=== PATIENT | male | born 1960 ===

== ENCOUNTER 2017-08-27 06:23 | Emergency (ER) | payer SELFPAY ==
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
[2017-08-27 08:07] VITALS: BP 148/88; PULSE 76; RESP 16; TEMP 97.8
[2017-08-27 09:04] VITALS: O2SAT 98
== END 2017-08-27 08:07 | disposition home or self-care (01) ==
LOC: MERGE 06:23 → C.ER 06:23
DX: Z76.0 Encounter for issue of repeat prescription (principal); M79.1 Myalgia

== ENCOUNTER 2017-08-29 04:45 | Emergency (ER) | payer OTHER ==
[2017-08-29 04:54] VITALS: RESP 18; O2SAT 98
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
[2017-08-29 06:13] VITALS: BP 125/88; PULSE 74; TEMP 98.6
== END 2017-08-29 06:04 | disposition home or self-care (01) ==
LOC: C.ER 04:45 → MERGE 04:45 → C.ER 06:04
DX: Z76.0 Encounter for issue of repeat prescription (principal); F41.9 Anxiety disorder, unspecified

== ENCOUNTER 2017-09-05 13:15 | Emergency (ER) | payer SELFPAY ==
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
[2017-09-05 15:23] VITALS: BP 129/78; PULSE 78; RESP 18; TEMP 97.9
[2017-09-05 15:35] VITALS: O2SAT 97
== END 2017-09-05 15:15 | disposition home or self-care (01) ==
LOC: C.ER 13:15
DX: Z76.0 Encounter for issue of repeat prescription (principal); M79.603 Pain in arm, unspecified; I10 Essential (primary) hypertension

== ENCOUNTER 2017-09-15 15:24 | Emergency (ER) | payer OTHER ==
[2017-09-15 16:01] VITALS: TEMP 97.8; O2SAT 98
[2017-09-15] MEDS ORDERED: Lactated Ringer's 1,000 ML IV STA (16:33)
[2017-09-15 16:57] LABS: BASO % 0.7 % (0.0-2.0); EOS # 0.1 K/uL (0.0-0.7); EOS % 1.3 % (0.0-4.0); HEMATOCRIT 38.9 % (35.0-51.0); LYMPH # 1.5 K/uL (1.0-4.3); LYMPH % 23.9 % (20.0-40.0); MEAN CELL VOLUME 90.5 fL (80.0-94.0); MEAN CORPUSCULAR HEMOGLOBIN 31.7 pg (27.0-31.0); MEAN CORPUSCULAR HGB CONC 35.1 g/dL (33.0-37.0); MEAN PLATELET VOLUME 8.9 fL (7.2-11.7); MONO # 0.6 K/uL (0.0-0.8); MONO % 9.6 % (0.0-10.0); WHITE BLOOD COUNT 6.3 K/uL (4.8-10.8)
[2017-09-15 17:07] LABS: ALB/GLOB RATIO 1.3 (1.0-2.1); ALKALINE PHOSPHATASE 59 U/L (38-126); ALT/SGPT 22 U/L (21-72); AST/SGOT 22 U/L (17-59); BILIRUBIN,TOTAL 0.4 mg/dL (0.2-1.3); BLOOD UREA NITROGEN 23 mg/dL (9-20); CALCIUM 8.8 mg/dl (8.6-10.4); CARBON DIOXIDE 31 mmol/L (22-30); CHLORIDE 99 mmol/L (98-107); GFR AFRICAN-AMERICAN > 60; GLUCOSE,RANDOM 78 mg/dL (75-110); SODIUM 136 mmol/L (132-148)
--- NOTE | 2017-09-15 17:09 | CT ---
PROCEDURE: CT HEAD WITHOUT CONTRAST. HISTORY: r/o ICH COMPARISON: None available. TECHNIQUE: Axial computed tomography images were obtained through the head/brain without intravenous contrast. Radiation dose: Total exam DLP = 738 mGy-cm. This CT exam was performed using one or more of the following dose reduction techniques: Automated exposure control, adjustment of the mA and/or kV according to patient size, and/or use of iterative reconstruction technique. FINDINGS: HEMORRHAGE: No intracranial hemorrhage. BRAIN: No mass effect or edema. No atrophy or chronic microvascular ischemic changes. VENTRICLES: Unremarkable. No hydrocephalus. CALVARIUM: Unremarkable. PARANASAL SINUSES: Unremarkable as visualized. No significant inflammatory changes. MASTOID AIR CELLS: Unremarkable as visualized. No inflammatory changes. OTHER FINDINGS: None. IMPRESSION: Normal CT of the Head.
[2017-09-15 18:07] VITALS: BP 132/84; PULSE 81; RESP 16
--- NOTE | 2017-09-15 18:30 | C.PDOC ---
History Of Present Illness 56 year old male presents to the ED c/o left sided headache. Patient is also c/ o minimal epigastric and right fifth toe pain. Patient denies recent trauma, injury, nausea, vomit, fever, chills. Time Seen by Provider: 09/15/17 16:21 Chief Complaint (Nursing): Headache History Per: Patient History/Exam Limitations: no limitations Onset/Duration Of Symptoms: Days Severity: None Quality: "Pain" Preceeding Symptoms: None Recent travel outside of the [place]: No Additional History Per: Patient Past Medical History Reviewed: Historical Data, Nursing Documentation, Vital Signs Vital Signs: Last Vital Signs Temp 97.8 F 09/15/17 16:00 Pulse 81 09/15/17 18:06 Resp 16 09/15/17 18:06 BP 132/84 09/15/17 18:06 Pulse Ox 98 09/15/17 18:34 - Medical History PMH: Anxiety, Depression, HTN Surgical History: No Surg Hx Family History: States: Unknown Family Hx - Social History Hx Alcohol Use: No Hx Substance Use: No - Immunization History Hx Tetanus Toxoid Vaccination: No Hx Influenza Vaccination: No Hx Pneumococcal Vaccination: No Review Of Systems Constitutional: Negative for: Fever, Chills Eyes: Negative for: Vision Change Cardiovascular: Negative for: Chest Pain, Palpitations Gastrointestinal: Positive for: Abdominal Pain. Negative for: Nausea, Vomiting , Diarrhea Musculoskeletal: Positive for: Foot Pain (right fifth toe) Skin: Negative for: Rash Neurological: Positive for: Headache. Negative for: Weakness, Numbness Physical Exam - Physical Exam Appears: Non-toxic, No Acute Distress Skin: Normal Color, Warm, Dry Head: Atraumatic, Normacephalic, Tenderness (mild left maxillary sinus tenderness) Nose: No Discharge, No Deformity Oral Mucosa: Moist Neck: Normal ROM, Supple Chest: Symmetrical Cardiovascular: Rhythm Regular, No Murmur Respiratory: Normal Breath Sounds, No Rales, No Rhonchi, No Wheezing Gastrointestinal/Abdominal: Soft, No Tenderness Extremity: Normal ROM, No Pedal Edema, No Calf Tenderness, No Deformity, No Swelling Neurological/Psych: Oriented x3, Normal Speech, Normal Cognition Gait: Steady ED Course And Treatment - Laboratory Results Result Diagrams: 09/15/17 16:46 09/15/17 16:46 O2 Sat by Pulse Oximetry: 98 (On RA) Pulse Ox Interpretation: Normal - CT Scan/US CT head Other Rad Studies (CT/US): Read By Radiologist, Radiology Report Reviewed CT/US Interpretation: FINDINGS: HEMORRHAGE: No intracranial hemorrhage. BRAIN : No mass effect or edema. No atrophy or chronic microvascular ischemic changes. VENTRICLES: Unremarkable. No hydrocephalus. CALVARIUM: Unremarkable. PARANASAL SINUSES: Unremarkable as visualized. No significant inflammatory changes. MASTOID AIR CELLS: Unremarkable as visualized. No inflammatory changes. OTHER FINDINGS: None. IMPRESSION: Normal CT of the Head. Medical Decision Making Medical Decision Making: Impression : headache, abdominal pain, right fifth toe pain Plan: * CT head * Blood work * IV fluids Patient was requesting prescription fro Ativan upon prescription monitoring it was showed that yael received 45 tablets of Ativan 3 days ago. Disposition - Disposition Referrals: [facility] [Outside] [facility] [Outside] Disposition: HOME/ ROUTINE Disposition Time: 17:40 Condition: GOOD Additional Instructions: Thank you for letting us take care of you today. The emergency medical care you received today was directed at your acute symptoms. If you were prescribed any medication, please fill it and take as directed. It may take several days for your symptoms to resolve. Return to the Emergency Department if your symptoms worsen, do not improve, or if you have any other problems. Please contact your doctor or call one of the physicians/clinics you have been referred to that are listed on the Patient Visit Information form that is included in your discharge packet. Bring any paperwork you were given at discharge with you along with any medications you are taking to your follow up visit. Our treatment cannot replace ongoing medical care by a primary care provider (PCP) outside of the emergency department. Thank you for allowing the [facility] team to be part of your care today. Stay hydrated throughout the day. Follow up with the clinic in 2-3 days for outpatient management and further evaluation. Prescriptions: Amoxicillin/Clavulanate [Augmentin 875 MG-125 MG] 1 tab PO Q12 #14 tab Ibuprofen [Motrin] 600 mg PO Q6 PRN #20 tab PRN Reason: Pain, Moderate (4-7) Instructions: Sinusitis (ED) Forms: [email or web address] (Citizen Of [place]) - Clinical Impression Clinical Impression: Sinusitis - Scribe Statement The provider has reviewed the documentation as recorded by the Scribe Gilles Eckert All medical record entries made by the Scribe were at my direction and personally dictated by me. I have reviewed the chart and agree that the record accurately reflects my personal performance of the history, physical exam, medical decision making, and the department course for this patient. I have also personally directed, reviewed, and agree with the discharge instructions and disposition.
== END 2017-09-15 18:06 | disposition home or self-care (01) ==
LOC: C.ER 15:24
DX: J32.9 Chronic sinusitis, unspecified (principal); I10 Essential (primary) hypertension
CPT/HCPCS: 70450; 80053; 83690; 85025; 99284; J7120

== ENCOUNTER 2017-09-19 06:27 | Emergency (ER) | payer OTHER ==
[2017-09-19 06:50] VITALS: O2SAT 100
--- NOTE | 2017-09-19 06:52 | C.PDOC ---
Chief Complaint (Nursing): Abdominal Pain Past Medical History - Medical History PMH: Anxiety, Depression, HTN Family History: States: Unknown Family Hx - Social History Hx Alcohol Use: No Hx Substance Use: No - Immunization History Hx Tetanus Toxoid Vaccination: No Hx Influenza Vaccination: No Hx Pneumococcal Vaccination: No Disposition - Disposition
[2017-09-19] MEDS ORDERED: Sodium Chloride 0.9% 1,000 ML IV ONE (07:14)
[2017-09-19] MEDS ORDERED: Sodium Chloride 0.9% 1,000 ML ONE (07:54)
[2017-09-19 08:09] LABS: BASO % 0.6 % (0.0-2.0); EOS # 0.1 K/uL (0.0-0.7); EOS % 1.6 % (0.0-4.0); HEMOGLOBIN 14.2 g/dL (12.0-18.0); LYMPH # 1.3 K/uL (1.0-4.3); LYMPH % 31.1 % (20.0-40.0); MEAN CELL VOLUME 90.4 fL (80.0-94.0); MEAN CORPUSCULAR HGB CONC 35.4 g/dL (33.0-37.0); MEAN PLATELET VOLUME 8.9 fL (7.2-11.7); MONO # 0.4 K/uL (0.0-0.8); MONO % 10.1 % (0.0-10.0); NEUT # 2.4 K/uL (1.8-7.0); NEUT % 56.6 % (50.0-75.0); RBC 4.44 Mil/uL (4.40-5.90); RED CELL DISTRIBUTION WIDTH 13.1 % (11.5-14.5); WHITE BLOOD COUNT 4.2 K/uL (4.8-10.8)
[2017-09-19 08:21] LABS: URINE BILIRUBIN NEGATIVE (NEGATIVE); URINE BLOOD NEGATIVE (NEGATIVE); URINE CLARITY Clear (Clear); URINE COLOR Yellow (YELLOW); URINE GLUCOSE (UA) NORMAL (Normal); URINE LEUKOCYTE ESTERASE NEG Leu/uL (Negative); URINE NITRATE NEGATIVE (NEGATIVE); URINE PROTEIN NEGATIVE (NEGATIVE); URINE UROBILINOGEN NORMAL mg/dL (0.2-1.0)
[2017-09-19 08:25] LABS: ALB/GLOB RATIO 1.4 (1.0-2.1); ALBUMIN 3.8 g/dL (3.5-5.0); ALT/SGPT 21 U/L (21-72); AST/SGOT 18 U/L (17-59); BLOOD UREA NITROGEN 18 mg/dL (9-20); CALCIUM 8.5 mg/dl (8.6-10.4); GFR AFRICAN-AMERICAN > 60; GFR NON-AFRICAN AMERICAN > 60; LIPASE 145 U/L (23-300)
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
[2017-09-19 09:28] VITALS: BP 147/84; PULSE 63; RESP 18; TEMP 97.7
== END 2017-09-19 09:30 | disposition home or self-care (01) ==
LOC: C.ER 06:27
DX: R10.13 Epigastric pain (principal); I10 Essential (primary) hypertension; E03.9 Hypothyroidism, unspecified
CPT/HCPCS: 80053; 81001; 83690; 85025; 96361; 96374; 96375; 99285; C9113; J1885; J7040

== ENCOUNTER 2017-09-22 06:57 | Emergency (ER) | payer OTHER, SELFPAY ==
[2017-09-22 07:16] VITALS: RESP 18
[2017-09-22] MEDS ORDERED: Sodium Chloride 0.9% 1,000 ML IV ONE (08:07)
[2017-09-22] MEDS ORDERED: DiphenhydrAMINE 50 mg/ml Inj IVP STA (08:07)
[2017-09-22] MEDS ORDERED: DiphenhydrAMINE 50 mg/ml Inj ONE (08:16)
[2017-09-22] MEDS ORDERED: Sodium Chloride 0.9% 1,000 ML ONE (08:16)
--- NOTE | 2017-09-22 08:30 | C.PDOC ---
History Of Present Illness 56-year-old male, presents to the emergency department with multiple complaints. Patients primary complaint is a generalized headache that has been ongoing for "a long time." Patient notes he was living in [place], where he was prescribed Fioricet Q6hrs, but he ran out when he moved here. Patients secondary complaint is generalized abdominal pain for the past few days, which worsens with eating. Additionally, he states pain to both hands after putting his hands in dryer. Denies vomiting, fevers, chills, shortness of breath, chest pain, visual changes, numbness/weakness, facial droop, speech changes, sensory changes, back pain, symptoms, change in bowel habits, or any other associated symptoms. No other complaints at this time. Time Seen by Provider: 09/22/17 07:33 Chief Complaint (Nursing): Headache History Per: Patient History/Exam Limitations: no limitations Onset/Duration Of Symptoms: Days Current Symptoms Are (Timing): Still Present Past Medical History Reviewed: Historical Data, Nursing Documentation, Vital Signs Vital Signs: Last Vital Signs Temp 98.2 F 09/22/17 09:10 Pulse 78 09/22/17 09:10 Resp 18 09/22/17 09:10 BP 134/76 09/22/17 09:10 Pulse Ox 97 09/22/17 18:12 - Medical History PMH: Anxiety, Depression, HTN, Hypothyroidism Family History: States: No Known Family Hx - Social History Hx Alcohol Use: No Hx Substance Use: No - Immunization History Hx Tetanus Toxoid Vaccination: No Hx Influenza Vaccination: No Hx Pneumococcal Vaccination: No Review Of Systems Except As Marked, All Systems Reviewed And Found Negative. Constitutional: Negative for: Fever, Chills Cardiovascular: Negative for: Chest Pain Respiratory: Negative for: Shortness of Breath Gastrointestinal: Positive for: Nausea, Abdominal Pain. Negative for: Vomiting Musculoskeletal: Negative for: Neck Pain, Back Pain Neurological: Positive for: Headache. Negative for: Weakness, Numbness, Altered Mental Status, Dizziness Physical Exam - Physical Exam Appears: Non-toxic, No Acute Distress Skin: Warm, Dry, No Rash Head: Atraumatic, Normacephalic Eye(s): bilateral: Normal Inspection, PERRL, EOMI Nose: Normal Oral Mucosa: Moist Lips: Normal Appearing Neck: Normal ROM Chest: Symmetrical, No Tenderness Cardiovascular: Rhythm Regular, No Murmur Respiratory: Normal Breath Sounds, No Accessory Muscle Use Gastrointestinal/Abdominal: Soft, No Tenderness, No Guarding, No Rebound Back: Normal Inspection, No CVA Tenderness Extremity: Normal ROM, No Swelling Neurological/Psych: Oriented x3, Normal Speech, Normal Cranial Nerves, Normal Motor, Normal Sensation, Normal Reflexes, Other (No focal deficits) Gait: Steady ED Course And Treatment - Laboratory Results Result Diagrams: 09/22/17 08:39 09/22/17 08:39 O2 Sat by Pulse Oximetry: 97 (on RA) Pulse Ox Interpretation: Normal Medical Decision Making Medical Decision Making: Plan: * CMP, UDS * CBC * Benadryl, Reglan, IVF, Xanax * UA * Reassess and Disposition Prior Visits Notes and records from previous visits were reviewed. Patient had a CT head scan done on 09/15/17 that did not reveal any acute findings. Patient was instructed to apply bacitracin twice a day and wash with soap and water. Ua was found to have (+) UTI. Patient was treated for potential Urethritis. Disposition - Disposition Referrals: [facility] at [facility] [Outside] Disposition: HOME/ ROUTINE Disposition Time: 10:10 Condition: GOOD Additional Instructions: Follow up with the medical doctor within 1-2 days. Return if worsened. Prescriptions: Alprazolam [Xanax] 0.5 mg PO ONCE PRN #5 tab PRN Reason: Anxiety Ciprofloxacin HCl [Cipro] 500 mg PO BID #28 tab Metoclopramide [Reglan] 1 tab PO TID PRN #25 tab PRN Reason: Nausea/Vomiting Naproxen [Naprosyn] 500 mg PO BID #20 tab Instructions: Urinary Tract Infection in Women (ED), Migraine Headache (ED) Forms: [employer] (Gabonese) - Clinical Impression Clinical Impression: Anxiety, Headache, Abdominal pain - Scribe Statement The provider has reviewed the documentation as recorded by the Scribe (Omar Gunderson) All medical record entries made by the Scribe were at my direction and personally dictated by me. I have reviewed the chart and agree that the record accurately reflects my personal performance of the history, physical exam, medical decision making, and the department course for this patient. I have also personally directed, reviewed, and agree with the discharge instructions and disposition.
[2017-09-22 08:42] LABS: BASO # 0.1 K/uL (0.0-0.2); EOS # 0.1 K/uL (0.0-0.7); EOS % 1.2 % (0.0-4.0); HEMOGLOBIN 14.3 g/dL (12.0-18.0); LYMPH # 1.6 K/uL (1.0-4.3); LYMPH % 30.2 % (20.0-40.0); MEAN CELL VOLUME 92.2 fL (80.0-94.0); MEAN CORPUSCULAR HEMOGLOBIN 31.8 pg (27.0-31.0); MEAN CORPUSCULAR HGB CONC 34.5 g/dL (33.0-37.0); MEAN PLATELET VOLUME 9.4 fL (7.2-11.7); MONO # 0.5 K/uL (0.0-0.8); MONO % 9.8 % (0.0-10.0); NEUT % 57.8 % (50.0-75.0); RBC 4.5 Mil/uL (4.40-5.90); RED CELL DISTRIBUTION WIDTH 12.9 % (11.5-14.5); WHITE BLOOD COUNT 5.2 K/uL (4.8-10.8)
[2017-09-22 08:53] LABS: SQUAMOUS EPITHIAL 2 /hpf (0-5); URINE BACTERIA RARE (<OCC); URINE BILIRUBIN NEGATIVE (NEGATIVE); URINE BLOOD 3+ (NEGATIVE); URINE CLARITY Clear (Clear); URINE COLOR Straw (YELLOW); URINE GLUCOSE (UA) NORMAL (Normal); URINE LEUKOCYTE ESTERASE 3+ Leu/uL (Negative); URINE NITRATE NEGATIVE (NEGATIVE); URINE PROTEIN NEGATIVE (NEGATIVE); URINE UROBILINOGEN NORMAL mg/dL (0.2-1.0)
[2017-09-22 08:59] LABS: BENZODIAZEPINES, UR NEGATIVE (NEGATIVE); OPIATES, UR NEGATIVE (NEGATIVE); PHENCYCLIDINE, UR NEGATIVE (NEGATIVE)
[2017-09-22 09:09] LABS: ALB/GLOB RATIO 1.3 (1.0-2.1); ALBUMIN 4.2 g/dL (3.5-5.0); ALT/SGPT 23 U/L (21-72); AST/SGOT 20 U/L (17-59); BLOOD UREA NITROGEN 14 mg/dL (9-20); CALCIUM 8.7 mg/dl (8.6-10.4); GFR AFRICAN-AMERICAN > 60; GFR NON-AFRICAN AMERICAN > 60
[2017-09-22 09:11] VITALS: BP 134/76; PULSE 78; TEMP 98.2
[2017-09-22 09:44] LABS: BARBITURATES, UR POSITIVE (NEGATIVE)
[2017-09-22 10:15] VITALS: O2SAT 97
[2017-09-22] MEDS ORDERED: cefTRIAXone (Rocephin) 250 mg Inj IM STA (10:18)
[2017-09-22] MEDS ORDERED: cefTRIAXone 250 MG, Lidocaine Hydrochloride 1% 1 ML IM ONE (10:33)
== END 2017-09-22 11:06 | disposition home or self-care (01) ==
LOC: C.ER 06:57
DX: F41.9 Anxiety disorder, unspecified (principal); R51 Headache; R10.84 Generalized abdominal pain
CPT/HCPCS: 80053; 80324; 80345; 80346; 80349; 80353; 80358; 80361; 81001; 83992; 85025; 96361; 96372; 96374; 99285; J0696; J2765; J7040

== ENCOUNTER 2017-09-25 07:48 | Emergency (ER) | payer SELFPAY ==
[2017-09-25 08:03] VITALS: BMI 23.0
[2017-09-25 08:08] VITALS: O2SAT 99
[2017-09-25] MEDS ORDERED: Lactated Ringer's 1,000 ML IV ONE (08:41)
[2017-09-25] MEDS ORDERED: Lactated Ringer's 1,000 ML ONE (09:12)
[2017-09-25 09:13] LABS: BASO % 0.9 % (0.0-2.0); EOS # 0.1 K/uL (0.0-0.7); EOS % 2.4 % (0.0-4.0); HEMOGLOBIN 13.6 g/dL (12.0-18.0); LYMPH # 1.5 K/uL (1.0-4.3); LYMPH % 31.1 % (20.0-40.0); MEAN CELL VOLUME 91.1 fL (80.0-94.0); MEAN CORPUSCULAR HEMOGLOBIN 32.1 pg (27.0-31.0); MEAN CORPUSCULAR HGB CONC 35.3 g/dL (33.0-37.0); MONO # 0.5 K/uL (0.0-0.8); MONO % 11.1 % (0.0-10.0); NEUT # 2.6 K/uL (1.8-7.0); NEUT % 54.5 % (50.0-75.0); RBC 4.23 Mil/uL (4.40-5.90); RED CELL DISTRIBUTION WIDTH 13.1 % (11.5-14.5); WHITE BLOOD COUNT 4.7 K/uL (4.8-10.8)
[2017-09-25 09:25] LABS: BLOOD UREA NITROGEN 17 mg/dL (9-20); CALCIUM 8.8 mg/dl (8.6-10.4); GFR AFRICAN-AMERICAN > 60; GFR NON-AFRICAN AMERICAN > 60
[2017-09-25 09:28] LABS: SQUAMOUS EPITHIAL < 1 /hpf (0-5); URINE BILIRUBIN NEGATIVE (NEGATIVE); URINE BLOOD NEGATIVE (NEGATIVE); URINE CLARITY Clear (Clear); URINE COLOR Straw (YELLOW); URINE GLUCOSE (UA) NORMAL (Normal); URINE LEUKOCYTE ESTERASE NEG Leu/uL (Negative); URINE NITRATE NEGATIVE (NEGATIVE); URINE PROTEIN NEGATIVE (NEGATIVE); URINE UROBILINOGEN NORMAL mg/dL (0.2-1.0)
[2017-09-25 10:19] VITALS: BP 147/92; PULSE 69; RESP 18; TEMP 98.1
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
== END 2017-09-25 10:45 | disposition home or self-care (01) ==
LOC: C.ER 07:48
DX: R42 Dizziness and giddiness (principal); F41.9 Anxiety disorder, unspecified; R11.2 Nausea with vomiting, unspecified; R19.7 Diarrhea, unspecified
CPT/HCPCS: 80048; 81001; 85025; 87086; 96361; 96374; 96375; 99285; C9113; J2765; J7120

== ENCOUNTER 2017-10-03 05:51 | Emergency (ER) | payer OTHER, SELFPAY ==
[2017-10-03 05:52] VITALS: BMI 23.3
[2017-10-03 06:03] VITALS: PULSE 80; TEMP 97.9; O2SAT 97
[2017-10-03] MEDS ORDERED: Apap-Butalbital-Caffeine 325-50-40mg Tab PO STA (06:26)
--- NOTE | 2017-10-03 06:28 | C.PDOC ---
History Of Present Illness Patient is a 56 y/o male, with a Hx of chronic migraines, who presents to the ED with a complaint of a frontal WALLIS. Patient notes pain is similar to past migraines. Admits to taking Fioricet for pain, but has run out and requests a refill. Patient denies any other physical complaints at this time. Time Seen by Provider: 10/03/17 06:05 Chief Complaint (Nursing): Headache History Per: Patient History/Exam Limitations: no limitations Current Symptoms Are (Timing): Still Present Recent travel outside of the [place]: No Past Medical History Reviewed: Historical Data, Nursing Documentation, Vital Signs Vital Signs: Last Vital Signs Temp 97.9 F 10/03/17 06:01 Pulse 80 10/03/17 06:01 Resp 20 10/03/17 06:01 BP 156/96 H 10/03/17 06:01 Pulse Ox 97 10/03/17 06:29 - Medical History PMH: Anxiety, Depression, HTN, Hypothyroidism, Migraine, Seizures Surgical History: No Surg Hx Family History: States: Unknown Family Hx - Social History Hx Tobacco Use: No Hx Alcohol Use: No Hx Substance Use: No - Immunization History Hx Tetanus Toxoid Vaccination: No Hx Influenza Vaccination: No Hx Pneumococcal Vaccination: No Review Of Systems Neurological: Positive for: Headache (frontal ) Physical Exam - Physical Exam Appears: Well, Non-toxic, No Acute Distress Eye(s): bilateral: Normal Inspection Ear(s): Bilateral: Normal Nose: Normal Oral Mucosa: Moist Throat: Normal, No Erythema Neck: Supple Chest: Symmetrical Cardiovascular: Rhythm Regular, No Murmur Respiratory: Normal Breath Sounds, No Rales, No Rhonchi, No Wheezing Gastrointestinal/Abdominal: Soft, No Tenderness Neurological/Psych: Oriented x3, Normal Speech, Normal Cognition, Normal Motor, Normal Sensation, Normal Reflexes, Other (no focal deficits) Gait: Steady ED Course And Treatment O2 Sat by Pulse Oximetry: 97 Pulse Ox Interpretation: Normal Progress Note: Motrin and Fioricet administered. On re-eval, patient feels better and is in NAD and stable for discharge. Reevaluation Time: 06:43 Reassessment Condition: Improved Disposition - Disposition Referrals: [facility] at [facility] [Outside] Disposition Time: 06:44 Condition: STABLE Additional Instructions: Take meds as prescribed Follow up in clinic Return to ER if worse Prescriptions: Acetaminophen/Butalbital/Caf [Fioricet] 1 tab PO TID PRN #20 tab PRN Reason: Headache Forms: [employer] (Korean) - Clinical Impression Clinical Impression: Migraine headache - Scribe Statement The provider has reviewed the documentation as recorded by the Scribe Sveta Ojeda All medical record entries made by the Scribe were at my direction and personally dictated by me. I have reviewed the chart and agree that the record accurately reflects my personal performance of the history, physical exam, medical decision making, and the department course for this patient. I have also personally directed, reviewed, and agree with the discharge instructions and disposition.
[2017-10-03] MEDS ORDERED: Apap-Butalbital-Caffeine 325-50-40mg Tab ONE (06:47)
[2017-10-03 06:56] VITALS: BP 138/87; RESP 16
== END 2017-10-03 07:12 | disposition home or self-care (01) ==
LOC: C.ER 05:51
DX: G43.909 Migraine, unspecified, not intractable, without status migrainosus (principal)

== ENCOUNTER 2017-10-24 09:25 | Emergency (ER) | payer SELFPAY ==
[2017-10-24 09:25] VITALS: BMI 23.3
[2017-10-24 09:45] VITALS: BP 137/89; PULSE 77; RESP 18; TEMP 97.9; O2SAT 99
--- NOTE | 2017-10-24 10:17 | C.PDOC ---
History Of Present Illness 56 y/o male presents to ED with complaints of growth to lower lip externally for 2 months. Patient states lesion bleeds whenever he shaves and is interested in removal of lesion. Patient denies any other complaints at this time. Chief Complaint (Nursing): Abnormal Skin Integrity History Per: Patient History/Exam Limitations: no limitations Onset/Duration Of Symptoms: Days Current Symptoms Are (Timing): Still Present Quality Of Symptoms: Painful Past Medical History Reviewed: Historical Data, Nursing Documentation, Vital Signs Vital Signs: Last Vital Signs Temp 97.9 F 10/24/17 09:43 Pulse 77 10/24/17 09:43 Resp 18 10/24/17 09:43 BP 137/89 10/24/17 09:43 Pulse Ox 99 10/24/17 10:16 - Medical History PMH: Anxiety, Depression, HTN, Hypothyroidism, Migraine, Seizures Surgical History: No Surg Hx Family History: States: No Known Family Hx - Social History Hx Tobacco Use: No Hx Alcohol Use: No Hx Substance Use: No - Immunization History Hx Tetanus Toxoid Vaccination: No Hx Influenza Vaccination: No Hx Pneumococcal Vaccination: No Review Of Systems Constitutional: Negative for: Fever, Chills Gastrointestinal: Negative for: Nausea, Vomiting Skin: Positive for: Lesions Neurological: Negative for: Numbness Physical Exam - Physical Exam Appears: Non-toxic, No Acute Distress Skin: Warm, Dry, Other (low lip wart like structure .5cm raised (-)erythema (-) surrounding edema) Head: Atraumatic, Normacephalic Eye(s): bilateral: Normal Inspection Oral Mucosa: Moist Cardiovascular: Rhythm Regular Respiratory: Normal Breath Sounds, No Rales, No Rhonchi, No Wheezing Gastrointestinal/Abdominal: Soft, No Tenderness, No Guarding, No Rebound Neurological/Psych: Oriented x3 ED Course And Treatment O2 Sat by Pulse Oximetry: 99 (RA) Pulse Ox Interpretation: Normal Medical Decision Making Medical Decision Making: Impression: WART Plan: pt referred to general surgery for further evaluation. Disposition - Disposition Referrals: Gino Stiles MD [Staff Provider] - Disposition: HOME/ ROUTINE Disposition Time: 10:15 Condition: GOOD Instructions: Common Wart (ED) Forms: [employer] (Belarusian) - Clinical Impression Clinical Impression: Skin lesion, Wart of face - Scribe Statement The provider has reviewed the documentation as recorded by the Scribe Gerri Hernandez All medical record entries made by the Ismaelibkorey were at my direction and personally dictated by me. I have reviewed the chart and agree that the record accurately reflects my personal performance of the history, physical exam, medical decision making, and the department course for this patient. I have also personally directed, reviewed, and agree with the discharge instructions and disposition.
== END 2017-10-24 10:19 | disposition home or self-care (01) ==
LOC: C.ER 09:25
DX: L98.9 Disorder of the skin and subcutaneous tissue, unspecified (principal); B07.9 Viral wart, unspecified

== ENCOUNTER 2017-10-28 11:04 | Emergency (ER) | payer SELFPAY ==
[2017-10-28 11:04] VITALS: BMI 23.3
[2017-10-28 11:25] VITALS: RESP 16; TEMP 97.7
[2017-10-28 12:19] VITALS: BP 148/86; PULSE 84; O2SAT 97
--- NOTE | 2017-10-28 14:07 | C.PDOC ---
History Of Present Illness 56 yr old male presents to the ER with complaints of body aches, sore throat and fever for 1 day. Patient is also requesting refills for his HTN medicine. Denies chest pain, SOB, cough, nausea, vomiting, abdominal pain or headache. Time Seen by Provider: 10/28/17 12:02 Chief Complaint (Nursing): Flu-like Symptoms History Per: Patient History/Exam Limitations: no limitations Onset/Duration Of Symptoms: Days (1) Current Symptoms Are (Timing): Still Present Past Medical History Reviewed: Historical Data, Nursing Documentation, Vital Signs Vital Signs: Last Vital Signs Temp 97.7 F 10/28/17 11:23 Pulse 84 10/28/17 12:19 Resp 16 10/28/17 12:19 BP 148/86 10/28/17 12:19 Pulse Ox 97 10/28/17 14:08 - Medical History PMH: Anxiety, Depression, HTN, Hypothyroidism, Migraine, Seizures Family History: States: No Known Family Hx - Social History Hx Tobacco Use: No Hx Alcohol Use: No Hx Substance Use: No - Immunization History Hx Tetanus Toxoid Vaccination: No Hx Influenza Vaccination: No Hx Pneumococcal Vaccination: No Review Of Systems Except As Marked, All Systems Reviewed And Found Negative. Constitutional: Positive for: Fever (subjective), Other ((+) body aches) ENT: Positive for: Throat Pain (sore throat) Cardiovascular: Negative for: Chest Pain Respiratory: Negative for: Cough, Shortness of Breath Gastrointestinal: Negative for: Nausea, Vomiting, Abdominal Pain Neurological: Negative for: Headache Physical Exam - Physical Exam Appears: Non-toxic, No Acute Distress Skin: Warm, Dry, No Rash Nose: Normal Oral Mucosa: Moist Throat: Normal, No Erythema, No Exudate, No Drooling Neck: Normal, Normal ROM, Supple Cardiovascular: Rhythm Regular, No Murmur Respiratory: Normal Breath Sounds, No Rales, No Rhonchi, No Stridor, No Wheezing Extremity: Normal ROM, No Swelling Neurological/Psych: Oriented x3, Normal Speech ED Course And Treatment O2 Sat by Pulse Oximetry: 97 (RA) Pulse Ox Interpretation: Normal Disposition - Disposition Referrals: [facility] [Outside] [facility] [Outside] Disposition: HOME/ ROUTINE Disposition Time: 12:15 Condition: GOOD Additional Instructions: Thank you for letting us take care of you today. The emergency medical care you received today was directed at your acute symptoms. If you were prescribed any medication, please fill it and take as directed. It may take several days for your symptoms to resolve. Return to the Emergency Department if your symptoms worsen, do not improve, or if you have any other problems. Please contact your doctor or call one of the physicians/clinics you have been referred to that are listed on the Patient Visit Information form that is included in your discharge packet. Bring any paperwork you were given at discharge with you along with any medications you are taking to your follow up visit. Our treatment cannot replace ongoing medical care by a primary care provider (PCP) outside of the emergency department. Thank you for allowing the [facility] team to be part of your care today. Follow up with the clinic next week as schedlued for re-evaluation and further management. Prescriptions: Ibuprofen [Motrin] 600 mg PO Q6 PRN #20 tab PRN Reason: Pain, Moderate (4-7) Metoprolol Succinate [Toprol Xl] 50 mg PO DAILY #10 tab.er.24h Oseltamivir Phosphate [Tamiflu] 75 mg PO BID #10 capsule Instructions: Viral Syndrome (ED) - Clinical Impression Clinical Impression: Influenza - Scribe Statement The provider has reviewed the documentation as recorded by the Myla Brownlee Provider Attestation: All medical record entries made by the Myla were at my direction and personally dictated by me. I have reviewed the chart and agree that the record accurately reflects my personal performance of the history, physical exam, medical decision making, and the department course for this patient. I have also personally directed, reviewed, and agree with the discharge instructions and disposition.
== END 2017-10-28 12:18 | disposition home or self-care (01) ==
LOC: C.ER 11:04
DX: J11.1 Influenza due to unidentified influenza virus with other respiratory manifestations (principal); I10 Essential (primary) hypertension; E03.9 Hypothyroidism, unspecified

== ENCOUNTER 2017-11-16 04:50 | Emergency (ER) | payer MEDICARE, MEDICAID ==
[2017-11-16 04:51] VITALS: BMI 23.3
[2017-11-16 05:09] VITALS: RESP 20; O2SAT 99
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
[2017-11-16 07:40] VITALS: BP 139/88; PULSE 87; TEMP 98.2
== END 2017-11-16 06:24 | disposition home or self-care (01) ==
LOC: C.ER 04:50
DX: G89.29 Other chronic pain (principal); R10.13 Epigastric pain; I10 Essential (primary) hypertension; E03.9 Hypothyroidism, unspecified

== ENCOUNTER 2017-11-20 07:01 | Emergency (ER) | payer MEDICAID, MEDICARE ==
[2017-11-20 07:01] VITALS: BMI 23.3
[2017-11-20 07:32] VITALS: RESP 18
--- NOTE | 2017-11-20 08:06 | C.PDOC ---
History Of Present Illness 56 yr old male presents to the ER with complaints of left sided headache for 1 day. Patient states the headache feels similar to his regular migraines. Patient was seen in September at [facility] and had a normal CAT scan of the head and was discharged home with Julietaet. Patient states the Fioricet helps but he has ran out and his next clinic appointment is not till December 06. Patient also reports of a small growth just below his lower lip on the chin for the past 2 months. States every time he shaves the area, it bleeds. Patient denies fever, chills, vision changes, chest pain, SOB, mouth swelling, throat swelling, lip swelling, nausea, vomiting, neck pain, weakness or numbness. Time Seen by Provider: 11/20/17 07:33 Chief Complaint (Nursing): Headache History Per: Patient History/Exam Limitations: no limitations Onset/Duration Of Symptoms: Days (1 day for headache, 2 montsh for growth) Current Symptoms Are (Timing): Still Present Past Medical History Reviewed: Historical Data, Nursing Documentation, Vital Signs Vital Signs: Last Vital Signs Temp 98.0 F 11/20/17 08:52 Pulse 70 11/20/17 08:52 Resp 18 11/20/17 08:52 BP 122/70 11/20/17 08:52 Pulse Ox 98 11/20/17 09:43 - Medical History PMH: Anxiety, Back Problems, Depression, HTN, Hypothyroidism, Migraine, Seizures Family History: States: No Known Family Hx - Social History Hx Tobacco Use: No Hx Alcohol Use: No Hx Substance Use: No - Immunization History Hx Tetanus Toxoid Vaccination: No Hx Influenza Vaccination: No Hx Pneumococcal Vaccination: No Review Of Systems Except As Marked, All Systems Reviewed And Found Negative. Constitutional: Negative for: Fever, Chills Eyes: Negative for: Vision Change ENT: Positive for: Other (- lip swelling). Negative for: Mouth Swelling, Throat Swelling Cardiovascular: Negative for: Chest Pain Respiratory: Negative for: Shortness of Breath Gastrointestinal: Negative for: Nausea, Vomiting Musculoskeletal: Negative for: Neck Pain Skin: Positive for: Other (+ growth just below lower lip on the chin) Neurological: Positive for: Headache (left sided). Negative for: Weakness, Numbness Physical Exam - Physical Exam Appears: Non-toxic, No Acute Distress Skin: Warm, Dry, Other (+ 2mm, skin color growth just below lower lip on the chin, no signs of infections, no erythema, no drainage) Head: Atraumatic, Normacephalic, No Abrasion, No Laceration Eye(s): bilateral: Normal Inspection, PERRL, EOMI Oral Mucosa: Moist Lips: Normal Appearing, No Swelling Throat: Normal, No Erythema, No Exudate Cardiovascular: Rhythm Regular, No Murmur Respiratory: Normal Breath Sounds, No Rales, No Rhonchi, No Stridor, No Wheezing Extremity: Normal ROM, No Swelling Neurological/Psych: Oriented x3, Normal Speech ED Course And Treatment O2 Sat by Pulse Oximetry: 98 (RA) Pulse Ox Interpretation: Normal Progress Note: Patient is treated with Fioricet PO. On reevaluation, patient is resting comfortably, is tolerating PO and no longer had a headache, no neurological deficit, photophobia, rash, fever or nuchal rigidity. Patient is instructed to follow up at the clinic for further evaluation. Medical Decision Making Medical Decision Making: PLAN: * Fioricet PO Disposition - Disposition Referrals: [facility] at [facility] [Outside] Disposition: HOME/ ROUTINE Disposition Time: 09:38 Condition: STABLE Additional Instructions: Follow up in Clinic within 1-2 days. Return to ED if feel worse. 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 - Scribe Statement The provider has reviewed the documentation as recorded by the Scribe Tamiko Brownlee All medical record entries made by the Scribe were at my direction and personally dictated by me. I have reviewed the chart and agree that the record accurately reflects my personal performance of the history, physical exam, medical decision making, and the department course for this patient. I have also personally directed, reviewed, and agree with the discharge instructions and disposition.
[2017-11-20] MEDS ORDERED: Apap-Butalbital-Caffeine 325-50-40mg Tab PO STA (08:12)
[2017-11-20] MEDS ORDERED: Apap-Butalbital-Caffeine 325-50-40mg Tab ONE (08:20)
[2017-11-20 08:53] VITALS: BP 122/70; PULSE 70; TEMP 98
[2017-11-20 09:42] VITALS: O2SAT 98
== END 2017-11-20 09:51 | disposition home or self-care (01) ==
LOC: C.ER 07:01
DX: R51 Headache (principal)

== ENCOUNTER 2018-09-21 14:12 | Emergency (ER) | payer MEDICAID, OTHER, SELFPAY ==
[2018-09-21 14:12] VITALS: BMI 23.3
[2018-09-21 14:39] VITALS: PULSE 80; TEMP 98; O2SAT 99
--- NOTE | 2018-09-21 14:55 | C.PDOC ---
History Of Present Illness Patient is a 57 year old male with a PMHx of psychiatric illness presents to the ED for evaluation of 10 episodes of yellow discharge from the rectum. He denies any recent sexual intercourse or anal intercourse in the past 2 years. He has no history of STD's but is concerned about venereal disease Patient denies constipation, diarrhea, dark or bloody stools, recent camping trips, or any new/exotic foods. Patient recently arrived here from [place] yesterday and noted symptoms thereafter. Time Seen by Provider: 09/21/18 14:52 Chief Complaint (Nursing): Abdominal Pain History Per: Patient History/Exam Limitations: no limitations Onset/Duration Of Symptoms: Days (since yesterday ) Current Symptoms Are (Timing): Still Present Context: Travel Location Of Pain/Discomfort: Other (rectum) Associated Symptoms: denies: Diarrhea, Constipation, Other (no dark or blood stools) Recent travel outside of the [place]: Yes ([place]) Additional History Per: Patient Past Medical History Reviewed: Historical Data, Nursing Documentation, Vital Signs Vital Signs: Last Vital Signs Temp 98 F 09/21/18 14:35 Pulse 80 09/21/18 14:35 Resp 20 09/21/18 14:35 BP Pulse Ox 99 09/21/18 14:35 - Medical History PMH: Anxiety, Back Problems, Depression, HTN, Hypothyroidism, Migraine, Seizures Surgical History: No Surg Hx Family History: States: Unknown Family Hx - Social History Hx Tobacco Use: No Hx Alcohol Use: No Hx Substance Use: No - Immunization History Hx Tetanus Toxoid Vaccination: No Hx Influenza Vaccination: No Hx Pneumococcal Vaccination: No Review Of Systems Constitutional: Negative for: Fever, Chills Eyes: Negative for: Pain, Vision Change ENT: Negative for: Ear Pain, Ear Discharge Cardiovascular: Negative for: Chest Pain, Palpitations Respiratory: Negative for: Cough, Shortness of Breath, SOB with Excertion, Pleuritic Pain Gastrointestinal: Negative for: Diarrhea, Constipation, Melena, Hematochezia Physical Exam - Physical Exam Appears: Non-toxic, No Acute Distress Skin: Warm Head: Normacephalic Eye(s): bilateral: Normal Inspection, PERRL, EOMI Nose: Normal Oral Mucosa: Moist Tongue: Normal Appearing Lips: Normal Appearing Teeth: Normal Dentition Gingiva: Normal Appearing Throat: Normal Neck: Trachea Midline, Supple, Other ( No meningeal signs- negative kernig's and brudzinskis) Chest: Symmetrical Cardiovascular: Rhythm Regular, No Friction Rub Respiratory: No Rales, No Rhonchi, No Wheezing Gastrointestinal/Abdominal: Soft, No Tenderness, No Distention Rectal: No Hemorrhoids, No Mass, No Tenderness, No Other (rash, crepitus, fluctuance, hemorrhoids. No enlarged or tender prostate) Extremity: Bilateral: Normal Color And Temperature Pulses: Left Dorsalis Pedis: Normal, Right Dorsalis Pedis: Normal Neurological/Psych: Oriented x3, Normal Speech, Normal Cognition, No Cerebellar Signs, Normal Motor, Normal Sensation Gait: Steady Extremity: Right: No Drift, Left: No Drift ED Course And Treatment O2 Sat by Pulse Oximetry: 99 (on RA) Pulse Ox Interpretation: Normal Medical Decision Making Medical Decision Makin yr old male p/w concern for veneral disease and yellowish discharge from his rectum. He denies any abnormal stool or pain with defecation. abd non-ttp on exam. Overall well appearing in NAD. No fluctuance noted on exam, no erythema or pain noted to perineum. No rashes or lesions noted. Testicular / penile exam unremarkable. Given well appearance in NAD, will rx w/ concern for STD. Plan * Bloodwork * Urinalysis Pt seeking to sign out AMA: I informed pt that he requires additional testing for ?syphillis and he notes that he does not want to stay for any more antibiotics or further evaluation. I informed the risk of or disability. He notes the risks and notes that he still seeks to sign out AMA. Given normal neuro exam, pt Disposition - Disposition Disposition: AGAINST MEDICAL ADVICE Disposition Time: 18:00 Condition: GOOD Forms: [employer] (Central African) - Clinical Impression Clinical Impression: Rectal discharge - PA / HOME CARE PHYSICAL THERAPIST / Resident Statement MD/DO has reviewed & agrees with the documentation as recorded. - Scribe Statement Provider Attestation: Lolly Rodriguez All medical record entries made by the Scribe were at my direction and personally dictated by me. I have reviewed the chart and agree that the record accurately reflects my personal performance of the history, physical exam, medical decision making, and the department course for this patient. I have also personally directed, reviewed, and agree with the discharge instructions and disposition.
[2018-09-21] MEDS ORDERED: cefTRIAXone (Rocephin) 250 mg Inj IM STA (16:03)
[2018-09-21] MEDS ORDERED: cefTRIAXone 250 MG in Water For Injection 0.9 ML IM ONE (16:15)
[2018-09-21 16:48] VITALS: RESP 18
== END 2018-09-21 16:48 | disposition left against medical advice (07) ==
LOC: C.ER 14:12
DX: R19.8 Other specified symptoms and signs involving the digestive system and abdomen (principal); E03.9 Hypothyroidism, unspecified; I10 Essential (primary) hypertension
CPT/HCPCS: 87081; 96372; 99283; G0328; J0696

== ENCOUNTER 2018-09-22 04:36 | Emergency (ER) | payer SELFPAY ==
[2018-09-22 04:37] VITALS: BMI 23.3
[2018-09-22 05:07] VITALS: TEMP 98.2; O2SAT 98
[2018-09-22] MEDS ORDERED: Apap-Butalbital-Caffeine 325-50-40mg Tab PO STA (05:43)
[2018-09-22] MEDS ORDERED: Apap-Butalbital-Caffeine 325-50-40mg Tab ONE (05:53)
--- NOTE | 2018-09-22 05:54 | C.PDOC ---
History Of Present Illness 57 year old male presents to the ED requesting medical refill for medication for his migraine medications. Patient reports he ran out of his Fioricet. Patient also c/o bilateral earache and wants to be checked. Patient was seen in the ED yesterday for his rectal pain, patient states he knows to follow up with clinic. Patient denies fever, chills, nausea, vomit, headache, visual changes, weakness, numbness. Time Seen by Provider: 09/22/18 05:36 Chief Complaint (Nursing): Medical Clearance History Per: Patient History/Exam Limitations: no limitations Onset/Duration Of Symptoms: Days Current Symptoms Are (Timing): Still Present Reports Recently: Seen In ED (09/21/18) Recent travel outside of the [place]: No Additional History Per: Patient Past Medical History Reviewed: Historical Data, Nursing Documentation, Vital Signs Vital Signs: Last Vital Signs Temp 98.2 F 09/22/18 04:50 Pulse 85 09/22/18 04:50 Resp 20 09/22/18 04:50 BP 156/96 H 09/22/18 04:50 Pulse Ox 98 09/22/18 04:50 - Medical History PMH: Anxiety, Back Problems, Depression, HTN, Hypothyroidism, Migraine, Seizures Surgical History: No Surg Hx Family History: States: Unknown Family Hx - Social History Hx Tobacco Use: No Hx Alcohol Use: No Hx Substance Use: No - Immunization History Hx Tetanus Toxoid Vaccination: No Hx Influenza Vaccination: No Hx Pneumococcal Vaccination: No Review Of Systems Constitutional: Negative for: Fever, Chills Eyes: Negative for: Vision Change Cardiovascular: Negative for: Chest Pain, Palpitations Respiratory: Negative for: Shortness of Breath Gastrointestinal: Negative for: Nausea, Vomiting, Abdominal Pain Skin: Negative for: Rash Neurological: Negative for: Weakness, Numbness, Headache Physical Exam - Physical Exam Appears: Non-toxic, No Acute Distress Skin: Normal Color, Warm, Dry Head: Atraumatic, Normacephalic Eye(s): bilateral: Normal Inspection Ear(s): Bilateral: TM Obscured By Wax (cerumen impaction) Oral Mucosa: Moist Neck: Normal ROM, Supple Chest: Symmetrical Cardiovascular: Rhythm Regular Respiratory: Normal Breath Sounds, No Rales, No Rhonchi, No Wheezing Gastrointestinal/Abdominal: Soft, No Tenderness, No Guarding, No Rebound Rectal: Deferred Extremity: Normal ROM, No Tenderness, No Swelling Neurological/Psych: Oriented x3, Normal Speech, Normal Cognition Gait: Steady ED Course And Treatment O2 Sat by Pulse Oximetry: 98 (ON RA) Pulse Ox Interpretation: Normal Progress Note: Plan: - Fioricet 1 tab PO. On reassessment, patient is resting comfortably, and is in no acute distress. Patient was instructed to follow up with physician/clinic in 1-2 days for further evaluation. 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 - Scribe Statement The provider has reviewed the documentation as recorded by the Scribe Gilles Eckert All medical record entries made by the Scribkorey were at my direction and personally dictated by me. I have reviewed the chart and agree that the record accurately reflects my personal performance of the history, physical exam, medical decision making, and the department course for this patient. I have also personally directed, reviewed, and agree with the discharge instructions and disposition.
[2018-09-22 05:58] VITALS: BP 148/85; PULSE 82; RESP 18
== END 2018-09-22 05:58 | disposition home or self-care (01) ==
LOC: C.ER 04:36
DX: G43.909 Migraine, unspecified, not intractable, without status migrainosus (principal); H61.23 Impacted cerumen, bilateral; E03.9 Hypothyroidism, unspecified; I10 Essential (primary) hypertension

== ENCOUNTER 2018-09-26 05:08 | Emergency (ER) | payer SELFPAY ==
[2018-09-26 05:08] VITALS: BMI 23.3
[2018-09-26 05:34] VITALS: BP 136/82; PULSE 80; RESP 20; TEMP 97.8; O2SAT 98
--- NOTE | 2018-09-26 05:52 | C.PDOC ---
History Of Present Illness 57 year old male presents to the ED c/o headache. Patient reports he was not able to fill the Fioricet prescription that was given to him last time. Patient denies visual changes, neck pain, fever, chills, nausea, vomit, diarrhea, dizziness, weakness, numbness, injury, fall, trauma. Time Seen by Provider: 09/26/18 05:39 Chief Complaint (Nursing): Headache History Per: Patient History/Exam Limitations: no limitations Onset/Duration Of Symptoms: Hrs Current Symptoms Are (Timing): Still Present Quality: "Pain" Associated Symptoms: denies: Photophobia, Blurred Vision, Nausea Recent travel outside of the [place]: No Additional History Per: Patient Past Medical History Reviewed: Historical Data, Nursing Documentation, Vital Signs Vital Signs: Last Vital Signs Temp 97.8 F 09/26/18 05:29 Pulse 80 09/26/18 05:29 Resp 20 09/26/18 05:29 BP 136/82 09/26/18 05:29 Pulse Ox 98 09/26/18 05:29 - Medical History PMH: Anxiety, Back Problems, Depression, HTN, Hypothyroidism (thyroid nodule), Migraine, Seizures Surgical History: No Surg Hx Family History: States: Unknown Family Hx - Social History Hx Tobacco Use: No Hx Alcohol Use: No Hx Substance Use: No - Immunization History Hx Tetanus Toxoid Vaccination: No Hx Influenza Vaccination: No Hx Pneumococcal Vaccination: No Review Of Systems Constitutional: Negative for: Fever, Chills Eyes: Negative for: Vision Change Cardiovascular: Negative for: Chest Pain Respiratory: Negative for: Shortness of Breath Gastrointestinal: Negative for: Nausea, Vomiting, Abdominal Pain Musculoskeletal: Negative for: Neck Pain Skin: Negative for: Rash Neurological: Positive for: Headache. Negative for: Weakness, Numbness, Dizziness Physical Exam - Physical Exam Appears: Non-toxic, No Acute Distress Skin: Normal Color, Warm, Dry Head: Atraumatic, Normacephalic Eye(s): bilateral: Normal Inspection, PERRL, EOMI Neck: Normal ROM, No Midline Cervical Tenderness, Supple Chest: Symmetrical Cardiovascular: Rhythm Regular Respiratory: Normal Breath Sounds, No Rales, No Rhonchi, No Wheezing Gastrointestinal/Abdominal: Soft, No Tenderness Extremity: Normal ROM, No Tenderness, No Swelling Neurological/Psych: Oriented x3, Normal Speech, Normal Cognition, Other (no focal deficits) Gait: Steady ED Course And Treatment O2 Sat by Pulse Oximetry: 98 (ON RA) Pulse Ox Interpretation: Normal Progress Note: Plan: - Motrin 600 mg PO. On reassessment, patient is resting comfortably, and is in no acute distress. Patient was instructed to follow up with physician/clinic in 1-2 days for further evaluation. Disposition - Disposition Referrals: 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 - Scribe Statement The provider has reviewed the documentation as recorded by the Scribe Gilles Eckert All medical record entries made by the Scribe were at my direction and personally dictated by me. I have reviewed the chart and agree that the record accurately reflects my personal performance of the history, physical exam, medical decision making, and the department course for this patient. I have also personally directed, reviewed, and agree with the discharge instructions and disposition.
== END 2018-09-26 06:06 | disposition home or self-care (01) ==
LOC: C.ER 05:08
DX: G43.909 Migraine, unspecified, not intractable, without status migrainosus (principal)

== ENCOUNTER 2018-09-29 15:15 | Emergency (ER) | payer OTHER ==
[2018-09-29 15:15] VITALS: BMI 23.3
[2018-09-29 15:39] VITALS: TEMP 97.9
[2018-09-29] MEDS ORDERED: Sodium Chloride 0.9% 1,000 ML IV ONE (16:37)
[2018-09-29 16:56] LABS: BASO # 0.1 K/uL (0.0-0.2); EOS # 0.4 K/uL (0.0-0.7); EOS % 7.6 % (0.0-4.0); HEMOGLOBIN 14.1 g/dL (12.0-18.0); LYMPH # 1.3 K/uL (1.0-4.3); LYMPH % 24.5 % (20.0-40.0); MEAN CELL VOLUME 92.9 fL (80.0-94.0); MEAN CORPUSCULAR HEMOGLOBIN 30.9 pg (27.0-31.0); MEAN CORPUSCULAR HGB CONC 33.2 g/dL (33.0-37.0); MEAN PLATELET VOLUME 9.7 fL (7.2-11.7); MONO # 0.5 K/uL (0.0-0.8); MONO % 9.9 % (0.0-10.0); NEUT # 3.1 K/uL (1.8-7.0); NRBC % 0.1 % (0.0-2.0); RBC 4.56 Mil/uL (4.40-5.90); RED CELL DISTRIBUTION WIDTH 13.6 % (11.5-14.5); WHITE BLOOD COUNT 5.5 K/uL (4.8-10.8)
[2018-09-29 17:27] LABS: BLOOD UREA NITROGEN 15 mg/dL (9-20); CALCIUM 9.4 mg/dl (8.6-10.4); GFR NON-AFRICAN AMERICAN > 60; LIPASE 85 U/L (23-300)
[2018-09-29 17:31] LABS: ALB/GLOB RATIO 1.5 (1.0-2.1); ALBUMIN 4.7 g/dL (3.5-5.0); ALT/SGPT 21 U/L (21-72); AST/SGOT 43 U/L (17-59)
--- NOTE | 2018-09-29 17:42 | C.PDOC ---
History Of Present Illness 57 year old male presents to the emergency department with a one day history of abdominal pain in his lower quadrants. Patient denies vomiting, diarrhea, nausea, urinary symptoms. Patient also reports headache associated with the abd ominal pain but denies fever, chills, and recent travel. Time Seen by Provider: 09/29/18 15:52 Chief Complaint (Nursing): Abdominal Pain History Per: Patient History/Exam Limitations: no limitations Onset/Duration Of Symptoms: Days (1) Current Symptoms Are (Timing): Still Present Location Of Pain/Discomfort: RLQ, LLQ Quality Of Discomfort: "Pain" Associated Symptoms: Other (headache). denies: Fever, Chills, Nausea, Vomiting, Diarrhea Recent travel outside of the [place]: No Past Medical History Reviewed: Historical Data, Nursing Documentation, Vital Signs Vital Signs: Last Vital Signs Temp 97.9 F 09/29/18 15:36 Pulse 77 09/29/18 15:36 Resp 20 09/29/18 15:36 BP 147/89 09/29/18 15:36 Pulse Ox 98 09/29/18 15:36 - Medical History PMH: Anxiety, Back Problems, Depression, HTN, Hypothyroidism (thyroid nodule), Migraine, Seizures Surgical History: No Surg Hx Family History: States: No Known Family Hx - Social History Hx Tobacco Use: No Hx Alcohol Use: No Hx Substance Use: No - Immunization History Hx Tetanus Toxoid Vaccination: No Hx Influenza Vaccination: No Hx Pneumococcal Vaccination: No Review Of Systems Except As Marked, All Systems Reviewed And Found Negative. Gastrointestinal: Positive for: Abdominal Pain Physical Exam - Physical Exam Appears: Non-toxic, No Acute Distress Skin: Normal Color, Warm, Dry Head: Atraumatic, Normacephalic Eye(s): bilateral: Normal Inspection, PERRL, EOMI Nose: Normal Oral Mucosa: Moist Neck: Normal, Supple Chest: Symmetrical, No Tenderness Cardiovascular: Rhythm Regular, No Murmur Respiratory: Normal Breath Sounds, No Rales, No Rhonchi, No Wheezing Gastrointestinal/Abdominal: Soft, Tenderness (lower quadrant abdominal pain), No Guarding, No Rebound Extremity: Normal ROM Neurological/Psych: Oriented x3, Normal Speech, Normal Cognition ED Course And Treatment - Laboratory Results Result Diagrams: 09/29/18 16:48 09/29/18 16:48 Lab Results: Total Bilirubin 0.9 mg/dL (0.2-1.3) 09/29/18 16:48 AST 43 U/L (17-59) 09/29/18 16:48 ALT 21 U/L (21-72) 09/29/18 16:48 Alkaline Phosphatase 58 U/L (38-126) 09/29/18 16:48 Total Protein 7.9 g/dL (6.3-8.3) 09/29/18 16:48 Albumin 4.7 g/dL (3.5-5.0) 09/29/18 16:48 Globulin 3.2 gm/dL (2.2-3.9) 09/29/18 16:48 Albumin/Globulin Ratio 1.5 (1.0-2.1) 09/29/18 16:48 Lipase 85 U/L (23-300) 09/29/18 16:48 O2 Sat by Pulse Oximetry: 98 (RA) Pulse Ox Interpretation: Normal - CT Scan/US CT Abdomen and Pelvis Other Rad Studies (CT/US): Read By Radiologist, Radiology Report Reviewed CT/US Interpretation: IMPRESSION: Findings consistent with constipation. The appendix exhibits localized dilatation measuring up to 7.65 mm in greatest dimension as above. No obvious inflammatory changes are identified within the adjacent peripancreatic mesentery. Findings are equivocal for acute appendicitis. Clinical correlation with history physical exam and laboratory values to exclude the possibility of a very early acute appendicitis however the findings likely represent a anatomic variation in this particular patient.. Two or 3 coarse calcifications right lobe liver nonspecific. The gallbladder incompletely distended which presumably in part accounts for thick-walled appearance. No pericholecystic fluid collections. Small fat containing umbilical hernia. Medical Decision Making Medical Decision Making: Plan: CT Abdomen and Pelvis Chemistry CBC Pepcid 20mg IVP NaCl IV Fluids Toradol 30mg IVP Urinalysis Currently, patient's abdominal pain is mainly in LLQ. NO RLQ tenderness at this time. Appendicitis highly doubtful. CT Scan discussed with surgeon crisis intervention counselor Dr. Renato Staley, who suggests laxative for constipation as well as antibiotic for equivocal reading. Patient instructed to return to the ED immediately if pain becomes worse or localized to RLQ. Patient understands and states that that is doable. Patient given the number of a GI, as he has never had a colonoscopy before. Disposition Discussed With DrDeanna: Aisha Staley Counseled Patient/Family Regarding: Studies Performed, Diagnosis, Need For Followup, Rx Given - Disposition Referrals: Ramos Hollingsworth MD [Staff Provider] - Disposition: HOME/ ROUTINE Disposition Time: 18:50 Condition: STABLE Additional Instructions: follow up with gi doctor within 2 days take medications as prescribed return to hospital at any time as mentioned your ct scan shows constipation and equivocal reading of inflammed appendix. Given you have no pain now to your right lower abdomen, no fever, no vomiting. We will start you on antibiotics and ask you to return to ER immediately if pain was to reoccur especially in the right lower abdomen. You state understanding and agree to plan. Prescriptions: Ciprofloxacin HCl [Cipro] 500 mg PO BID #20 tab Metronidazole [Flagyl] 500 mg PO BID #20 tablet Naproxen [Naprosyn] 500 mg PO BID PRN #16 tab PRN Reason: Pain, Moderate (4-7) Polyethylene Glycol 3350 [Miralax] 17 g PO DAILY PRN #12 packet PRN Reason: Constipation Instructions: Constipation in Adults, Acute Abdomen (Belly Pain), Adult (DC) Forms: [facility] (Welsh), General Discharge Instructions - Clinical Impression Clinical Impression: Constipation, Abdominal pain - Scribe Statement The provider has reviewed the documentation as recorded by the Scribe (Jacob Rivera) Provider Attestation: All medical record entries made by the Scribe were at my direction and personally dictated by me. I have reviewed the chart and agree that the record accurately reflects my personal performance of the history, physical exam, medical decision making, and the department course for this patient. I have also personally directed, reviewed, and agree with the discharge instructions and disposition.
--- NOTE | 2018-09-29 18:08 | CT ---
Date of service: 09/29/2018 PROCEDURE: CT Abdomen and Pelvis . HISTORY: ABD PAIN COMPARISON: No prior study available for comparison. TECHNIQUE: Contiguous axial images of the abdomen and pelvis performed without oral or intravenous contrast material. Additional 2D sagittal and coronal reformats generated. Radiation dose: Total exam DLP = 482.39 mGy-cm. This CT exam was performed using one or more of the following dose reduction techniques: Automated exposure control, adjustment of the mA and/or kV according to patient size, and/or use of iterative reconstruction technique. FINDINGS: LOWER THORAX: Heart is within range of normal. No significant pericardial effusion. There is a small hiatal hernia. Areas of atelectasis/scarring seen in both lung bases including the lingular and middle lobe regions. No infiltrate effusion or basilar pneumothorax.. LIVER: Liver exhibits normal size.. There are 2 or 3 coarse calcifications seen in the superior aspect right lobe liver the dome of the diaphragm nonspecific. GALLBLADDER AND BILE DUCTS: Gallbladder is incompletely distended which presumably in part accounts for slight thick-walled appearance. No evidence of intraluminal gallbladder calculi or pericholecystic fluid collections.. PANCREAS: Pancreas appears unremarkable without masses collections or calcifications.. SPLEEN: Spleen exhibits normal size and attenuation pattern without masses collections or calcifications. There also appears to be a small splenule adjacent to the anterior superior margin of the mid body of the spleen with a 2nd suspected small splenule along the posterior inferior main body of the spleen also adjacent to the upper pole of the left kidney.. ADRENALS: Slightly nodular appearing adrenal glands.... KIDNEYS AND URETERS: The kidneys demonstrate relatively symmetric size. No evidence of nephrolithiasis or hydronephrosis. BLADDER: Grossly unremarkable urinary bladder is moderately distended. No evidence of intraluminal urinary bladder calculi. REPRODUCTIVE: Prostate gland measures approximately 4 cm in transverse dimension.. Few prostatic calcifications are present. APPENDIX: U slight dilatation of a short segment of the mid to distal appendix which measures up to approximately 7.5 mm however no obvious infiltration/on inflammatory changes in the adjacent mesentery. Findings are equivocal for acute appendicitis and therefore clinical correlation with history physical exam and laboratory values. BOWEL: Evaluation of the bowel is somewhat limited due to the lack of oral contrast material. Stomach is partially distended with food debris liquid and air. Visualized loops of small bowel exhibit normal contour and caliber. No evidence of acute mechanical small bowel obstruction. There is a large amount of stool seen throughout most of the colon consistent with fecal retention/constipation... PERITONEUM: Unremarkable. No fluid collection. No free air. Small fat containing umbilical hernia. LYMPH NODES: Unremarkable. No enlarged lymph nodes. VASCULATURE: Unremarkable. No aortic aneurysm. No aortic atherosclerotic calcification or mural plaque present. BONES: Mild multilevel degenerative spondylosis of the lower thoracic and lumbar spine. OTHER FINDINGS: None. IMPRESSION: Findings consistent with constipation. The appendix exhibits localized dilatation measuring up to 7.65 mm in greatest dimension as above. No obvious inflammatory changes are identified within the adjacent peripancreatic mesentery. Findings are equivocal for acute appendicitis. Clinical correlation with history physical exam and laboratory values to exclude the possibility of a very early acute appendicitis however the findings likely represent a anatomic variation in this particular patient.. Two or 3 coarse calcifications right lobe liver nonspecific. The gallbladder incompletely distended which presumably in part accounts for thick-walled appearance. No pericholecystic fluid collections. Small fat containing umbilical hernia.
[2018-09-29 18:15] LABS: URINE AMORPHOUS SEDIMENT MODERATE /ul (<OCC); URINE BACTERIA RARE (<OCC); URINE BILIRUBIN NEGATIVE (NEGATIVE); URINE BLOOD NEGATIVE (NEGATIVE); URINE CLARITY Hazy (Clear); URINE COLOR Red (YELLOW); URINE GLUCOSE (UA) NORMAL (Normal); URINE LEUKOCYTE ESTERASE NEG Leu/uL (Negative); URINE PROTEIN NEGATIVE (NEGATIVE); URINE UROBILINOGEN NORMAL mg/dL (0.2-1.0)
[2018-09-29 19:21] VITALS: BP 161/98; PULSE 69; RESP 14
[2018-10-01 17:03] VITALS: O2SAT 98
== END 2018-09-29 19:05 | disposition home or self-care (01) ==
LOC: C.ER 15:15
DX: K59.00 Constipation, unspecified (principal); R10.9 Unspecified abdominal pain; I10 Essential (primary) hypertension; E03.9 Hypothyroidism, unspecified; F41.9 Anxiety disorder, unspecified; Z87.891 Personal history of nicotine dependence
CPT/HCPCS: 74176; 80053; 81001; 83690; 85025; 96374; 96375; 99285; J1885; J7030

== ENCOUNTER 2018-10-02 10:32 | Emergency (ER) | payer OTHER ==
[2018-10-02 10:47] VITALS: BMI 22.4
[2018-10-02 10:49] VITALS: O2SAT 98
[2018-10-02] MEDS ORDERED: Sodium Chloride 0.9% 1,000 ML IV ONE (11:19)
[2018-10-02] MEDS ORDERED: Sodium Chloride 0.9% 1,000 ML ONE (11:45)
[2018-10-02 12:02] LABS: BASO # 0.1 K/uL (0.0-0.2); BASO % 1.4 % (0.0-2.0); EOS # 0.3 K/uL (0.0-0.7); EOS % 5.7 % (0.0-4.0); HEMOGLOBIN 13.1 g/dL (12.0-18.0); LYMPH # 1.6 K/uL (1.0-4.3); LYMPH % 31.3 % (20.0-40.0); MEAN CELL VOLUME 92.3 fL (80.0-94.0); MEAN CORPUSCULAR HEMOGLOBIN 31.5 pg (27.0-31.0); MEAN CORPUSCULAR HGB CONC 34.2 g/dL (33.0-37.0); MEAN PLATELET VOLUME 9.1 fL (7.2-11.7); MONO # 0.5 K/uL (0.0-0.8); MONO % 9.3 % (0.0-10.0); NEUT # 2.7 K/uL (1.8-7.0); NEUT % 52.3 % (50.0-75.0); NRBC % 0.1 % (0.0-2.0); RBC 4.14 Mil/uL (4.40-5.90); WHITE BLOOD COUNT 5.1 K/uL (4.8-10.8)
[2018-10-02 12:18] LABS: URINE BILIRUBIN NEGATIVE (NEGATIVE); URINE BLOOD NEGATIVE (NEGATIVE); URINE CLARITY Clear (Clear); URINE COLOR Yellow (YELLOW); URINE GLUCOSE (UA) NORMAL (Normal); URINE LEUKOCYTE ESTERASE NEG Leu/uL (Negative); URINE PROTEIN NEGATIVE (NEGATIVE); URINE UROBILINOGEN NORMAL mg/dL (0.2-1.0)
[2018-10-02 12:21] LABS: ALB/GLOB RATIO 1.5 (1.0-2.1); ALBUMIN 4.1 g/dL (3.5-5.0); ALT/SGPT 32 U/L (21-72); AST/SGOT 25 U/L (17-59); BLOOD UREA NITROGEN 17 mg/dL (9-20); CALCIUM 9.1 mg/dl (8.6-10.4); GFR NON-AFRICAN AMERICAN > 60
--- NOTE | 2018-10-02 13:07 | C.PDOC ---
History Of Present Illness Patient is a 57 year old male, with a PMHx of migraines, who presents to the ED complaining of a frontal headache with associated nausea and photophobia that has been present for one day. Patient states that his symptoms feel similar to his previous migraines. He typically takes Fioricet, but does not have any more medication. Patient additionally c/o bilateral ankle pain and swelling for the past 2 days. He denies any falls, injuries, sensory changes, fever, or chills. Time Seen by Provider: 10/02/18 10:52 Chief Complaint (Nursing): Headache History Per: Patient History/Exam Limitations: no limitations Onset/Duration Of Symptoms: Days (1) Current Symptoms Are (Timing): Still Present Quality: "Pain" Preceeding Symptoms: Known Migraine Symptoms Associated Symptoms: Photophobia, Nausea Recent travel outside of the [place]: No Additional History Per: Patient Past Medical History Reviewed: Historical Data, Nursing Documentation, Vital Signs Vital Signs: Last Vital Signs Temp 98.0 F 10/02/18 10:47 Pulse 85 10/02/18 10:47 Resp 20 10/02/18 10:47 BP 152/89 H 10/02/18 10:47 Pulse Ox 98 10/02/18 10:47 - Medical History PMH: Anxiety, Back Problems, Depression, HTN, Hypothyroidism (thyroid nodule), Migraine, Seizures Surgical History: No Surg Hx Family History: States: Unknown Family Hx - Social History Hx Tobacco Use: No Hx Alcohol Use: No Hx Substance Use: No - Immunization History Hx Tetanus Toxoid Vaccination: No Hx Influenza Vaccination: No Hx Pneumococcal Vaccination: No Review Of Systems Constitutional: Negative for: Fever, Chills Gastrointestinal: Positive for: Nausea Musculoskeletal: Positive for: Foot Pain (ankle pain and swelling ) Neurological: Positive for: Headache (frontal ), Other (photophobia. denies sensory changes. ) Physical Exam - Physical Exam Appears: Non-toxic, Other (mild discomfort ) Skin: Normal Color, Warm, Dry Head: Atraumatic, Normacephalic Eye(s): bilateral: Normal Inspection, PERRL, EOMI Oral Mucosa: Moist Neck: Normal ROM, Supple Chest: Symmetrical, No Deformity Cardiovascular: Rhythm Regular, No Murmur Respiratory: Normal Breath Sounds, No Rales, No Rhonchi, No Wheezing Gastrointestinal/Abdominal: Soft, No Tenderness, No Guarding, No Rebound Extremity: No Calf Tenderness, No Deformity (bilateral ankles ), Other (mild bilateral ankle swelling ) Pulses: Left Dorsalis Pedis: Normal, Right Dorsalis Pedis: Normal Neurological/Psych: Oriented x3, Normal Speech, Normal Cognition ED Course And Treatment - Laboratory Results Result Diagrams: 10/02/18 11:54 10/02/18 11:54 Lab Results: Total Bilirubin 0.3 mg/dL (0.2-1.3) 10/02/18 11:54 AST 25 U/L (17-59) 10/02/18 11:54 ALT 32 U/L (21-72) 10/02/18 11:54 Alkaline Phosphatase 71 U/L (38-126) 10/02/18 11:54 Total Protein 6.7 g/dL (6.3-8.3) 10/02/18 11:54 Albumin 4.1 g/dL (3.5-5.0) 10/02/18 11:54 Globulin 2.6 gm/dL (2.2-3.9) 10/02/18 11:54 Albumin/Globulin Ratio 1.5 (1.0-2.1) 10/02/18 11:54 Urine Color Yellow (YELLOW) 10/02/18 12:10 Urine Clarity Clear (Clear) 10/02/18 12:10 Urine pH 6.0 (5.0-8.0) 10/02/18 12:10 Ur Specific [place] 1.016 (1.003-1.030) 10/02/18 12:10 Urine Protein Negative mg/dL (NEGATIVE) 10/02/18 12:10 Urine Glucose (UA) Normal mg/dL (Normal) 10/02/18 12:10 Urine Ketones Negative mg/dL (NEGATIVE) 10/02/18 12:10 Urine Blood Negative (NEGATIVE) 10/02/18 12:10 Urine Nitrate Negative (NEGATIVE) 10/02/18 12:10 Urine Bilirubin Negative (NEGATIVE) 10/02/18 12:10 Urine Urobilinogen Normal mg/dL (0.2-1.0) 10/02/18 12:10 Ur Leukocyte Esterase Neg Meir/uL (Negative) 10/02/18 12:10 Urine WBC (Auto) < 1 /hpf (0-5) 10/02/18 12:10 Urine RBC (Auto) < 1 /hpf (0-3) 10/02/18 12:10 O2 Sat by Pulse Oximetry: 98 (on RA) Pulse Ox Interpretation: Normal Progress Note: Bloodwork, Serology, Urinalysis were ordered. Toradol 30mg IVP, Reglan 10mg IV, IV Fluids administered. Disposition Counseled Patient/Family Regarding: Studies Performed, Diagnosis, Need For Followup, Rx Given - Disposition Referrals: [facility] [Outside] Disposition: HOME/ ROUTINE Disposition Time: 13:20 Condition: STABLE Additional Instructions: FOLLOW UP WITH THE MEDICAL CLINIC IN 1-2 DAYS USE MEDICATIONS NEEDED RETURN TO ER IF YOUR SYMPTOMS WORSEN Prescriptions: Acetaminophen/Butalbital/Caf [Fioricet] 1 tab PO TID PRN #20 tab PRN Reason: Headache Naproxen 375 mg PO BID PRN #20 tablet PRN Reason: pain Instructions: Migraine Headache (DC) Forms: [employer] (Croatian) Print Language: [place] - Clinical Impression Clinical Impression: Migraine, Arthralgia of ankle - Scribe Statement The provider has reviewed the documentation as recorded by the Myla Rodriguez All medical record entries made by the Myla were at my direction and personally dictated by me. I have reviewed the chart and agree that the record accurately reflects my personal performance of the history, physical exam, medical decision making, and the department course for this patient. I have also personally directed, reviewed, and agree with the discharge instructions and disposition.
--- NOTE | 2018-10-02 13:09 | C.PDOC ---
Time Seen by Provider: 10/02/18 10:52 Chief Complaint (Nursing): Headache Past Medical History Vital Signs: Last Vital Signs Temp 98.0 F 10/02/18 10:47 Pulse 85 10/02/18 10:47 Resp 20 10/02/18 10:47 BP 152/89 H 10/02/18 10:47 Pulse Ox 98 10/02/18 10:47 - Medical History PMH: Anxiety, Back Problems, Depression, HTN, Hypothyroidism (thyroid nodule), Migraine, Seizures Family History: States: Unknown Family Hx - Social History Hx Tobacco Use: No Hx Alcohol Use: No Hx Substance Use: No - Immunization History Hx Tetanus Toxoid Vaccination: No Hx Influenza Vaccination: No Hx Pneumococcal Vaccination: No ED Course And Treatment - Laboratory Results Result Diagrams: 10/02/18 11:54 10/02/18 11:54 Lab Results: Total Bilirubin 0.3 mg/dL (0.2-1.3) 10/02/18 11:54 AST 25 U/L (17-59) 10/02/18 11:54 ALT 32 U/L (21-72) 10/02/18 11:54 Alkaline Phosphatase 71 U/L (38-126) 10/02/18 11:54 Total Protein 6.7 g/dL (6.3-8.3) 10/02/18 11:54 Albumin 4.1 g/dL (3.5-5.0) 10/02/18 11:54 Globulin 2.6 gm/dL (2.2-3.9) 10/02/18 11:54 Albumin/Globulin Ratio 1.5 (1.0-2.1) 10/02/18 11:54 Urine Color Yellow (YELLOW) 10/02/18 12:10 Urine Clarity Clear (Clear) 10/02/18 12:10 Urine pH 6.0 (5.0-8.0) 10/02/18 12:10 Ur Specific [place] 1.016 (1.003-1.030) 10/02/18 12:10 Urine Protein Negative mg/dL (NEGATIVE) 10/02/18 12:10 Urine Glucose (UA) Normal mg/dL (Normal) 10/02/18 12:10 Urine Ketones Negative mg/dL (NEGATIVE) 10/02/18 12:10 Urine Blood Negative (NEGATIVE) 10/02/18 12:10 Urine Nitrate Negative (NEGATIVE) 10/02/18 12:10 Urine Bilirubin Negative (NEGATIVE) 10/02/18 12:10 Urine Urobilinogen Normal mg/dL (0.2-1.0) 10/02/18 12:10 Ur Leukocyte Esterase Neg Meir/uL (Negative) 10/02/18 12:10 Urine WBC (Auto) < 1 /hpf (0-5) 10/02/18 12:10 Urine RBC (Auto) < 1 /hpf (0-3) 10/02/18 12:10 O2 Sat by Pulse Oximetry: 98 Disposition - Disposition
[2018-10-02 13:24] VITALS: BP 151/97; PULSE 73; RESP 18; TEMP 98.1
[2018-10-04 20:48] LABS: LYME IGM NEGATIVE (NEGATIVE)
[2018-10-04 21:06] LABS: LYME IGG NEGATIVE (NEGATIVE)
== END 2018-10-02 13:35 | disposition home or self-care (01) ==
LOC: C.ER 10:32
DX: G43.909 Migraine, unspecified, not intractable, without status migrainosus (principal); M25.572 Pain in left ankle and joints of left foot; M25.571 Pain in right ankle and joints of right foot
CPT/HCPCS: 80053; 81001; 85025; 86618; 87804; 96365; 96375; 99284; J1885; J2765; J7030

== ENCOUNTER 2018-10-11 09:05 | Emergency (ER) | payer OTHER ==
[2018-10-11 09:06] VITALS: BMI 22.4
[2018-10-11 09:14] VITALS: RESP 16; TEMP 97.8
--- NOTE | 2018-10-11 09:16 | C.PDOC ---
Chief Complaint (Nursing): Headache Past Medical History - Medical History PMH: Anxiety, Back Problems, Depression, HTN, Hypothyroidism (thyroid nodule), Migraine, Seizures Family History: States: Unknown Family Hx - Social History Hx Tobacco Use: No Hx Alcohol Use: No Hx Substance Use: No - Immunization History Hx Tetanus Toxoid Vaccination: No Hx Influenza Vaccination: No Hx Pneumococcal Vaccination: No Disposition - Disposition
[2018-10-11] MEDS ORDERED: Sodium Chloride 0.9% 1,000 ML IV SCH (09:45)
[2018-10-11] MEDS ORDERED: Sodium Chloride 0.9% 1,000 ML ONE (09:49)
[2018-10-11 09:50] LABS: BASO % 0.8 % (0.0-2.0); EOS # 0.2 K/uL (0.0-0.7); EOS % 2.9 % (0.0-4.0); LYMPH # 1.6 K/uL (1.0-4.3); LYMPH % 28.7 % (20.0-40.0); MEAN CELL VOLUME 92.5 fL (80.0-94.0); MEAN CORPUSCULAR HEMOGLOBIN 31.4 pg (27.0-31.0); MEAN CORPUSCULAR HGB CONC 33.9 g/dL (33.0-37.0); MEAN PLATELET VOLUME 8.7 fL (7.2-11.7); MONO # 0.4 K/uL (0.0-0.8); MONO % 7.9 % (0.0-10.0); NEUT # 3.3 K/uL (1.8-7.0); NEUT % 59.7 % (50.0-75.0); RBC 4.46 Mil/uL (4.40-5.90); RED CELL DISTRIBUTION WIDTH 13.5 % (11.5-14.5); WHITE BLOOD COUNT 5.5 K/uL (4.8-10.8)
--- NOTE | 2018-10-11 09:53 | C.PDOC ---
History Of Present Illness 57 yr old male w/ hx of migraine WALLIS p/w headache. Pt notes headache started at 10pm last night, not sudden onset, not worst of life, without radiation, first time occurence. He notes WALLIS is L sided, throbbing, without radiation, without FND. He notes that his headache feels similiar to previous migraine headaches. He notes trying naproxyn without much relief last night. No neck pain or trauma. No fever. He otherwise denies any abdominal pain, GI or complaints, rash or any other issues. No other complaints. Chief Complaint (Nursing): Headache Past Medical History Vital Signs: Last Vital Signs Temp 97.8 F 10/11/18 09:12 Pulse 74 10/11/18 09:12 Resp 16 10/11/18 09:12 BP 142/92 H 10/11/18 09:12 Pulse Ox 100 10/11/18 09:12 - Medical History PMH: Anxiety, Back Problems, Depression, HTN, Hypothyroidism (thyroid nodule), Migraine, Seizures Family History: States: Unknown Family Hx - Social History Hx Tobacco Use: No Hx Alcohol Use: No Hx Substance Use: No - Immunization History Hx Tetanus Toxoid Vaccination: No Hx Influenza Vaccination: No Hx Pneumococcal Vaccination: No Review Of Systems Constitutional: Negative for: Fever, Chills, Weakness, Malaise Eyes: Negative for: Pain, Vision Change ENT: Negative for: Ear Pain, Ear Discharge, Nose Pain, Nose Congestion, Mouth Pain Cardiovascular: Negative for: Chest Pain, Palpitations, Orthopnea, Edema, Light Headedness Respiratory: Negative for: Cough, Shortness of Breath, SOB with Excertion, Pleuritic Pain Gastrointestinal: Negative for: Nausea, Vomiting, Abdominal Pain, Constipation, Melena, Hematochezia Genitourinary: Negative for: Dysuria, Frequency, Hematuria Musculoskeletal: Negative for: Neck Pain, Shoulder Pain, Back Pain Skin: Negative for: Rash Neurological: Positive for: Headache. Negative for: Weakness, Numbness, Incoordination, Confusion, Seizures, Altered Mental Status Psych: Negative for: Anxiety Physical Exam - Physical Exam Appears: Well, Non-toxic Skin: Normal Color Head: Atraumatic, Normacephalic Eye(s): bilateral: Normal Inspection, PERRL, EOMI Ear(s): Bilateral: Normal Nose: Normal Oral Mucosa: Moist Tongue: Normal Appearing Lips: Normal Appearing Teeth: Normal Dentition Gingiva: Normal Appearing Throat: Normal, No Erythema, No Exudate Neck: Normal, Normal ROM, Supple, Other (no meningeal signs) Chest: Symmetrical Cardiovascular: Rhythm Regular Respiratory: Normal Breath Sounds Gastrointestinal/Abdominal: Normal Exam Back: Normal Inspection, No CVA Tenderness, No Vertebral Tenderness Extremity: Normal ROM Extremity: Bilateral: Atraumatic Neurological/Psych: Oriented x3, Normal Speech, Normal Cognition, Normal Cranial Nerves, No Cerebellar Signs, Normal Motor, Normal Sensation, No Dysarthria Gait: Steady Other Neurological Findings: No Facial Palsy Extremity: Right: No Drift, Left: No Drift, Upper: No Drift, Lower: No Drift ED Course And Treatment - Laboratory Results Result Diagrams: 10/11/18 09:45 10/11/18 09:45 O2 Sat by Pulse Oximetry: 100 Medical Decision Making Medical Decision Making: Well appearing 57 yr old male w/ hx of migraine wallis p/w WALLIS since 10 pm last night. No indication of SAH, given not worst WALLIS of life and not sudden in onset, however given was recently here over past month with WALLIS, will seek CT to rule out mass. Pt in NAD w. normal neuro exam on eval. Will monitor and seek pain control and imaging Pending imaging, labs and pain control. 1036 pain fully resolved per pt. labs unremarkable CT negative, repeat neuro exam unremarkable; neuro exam remains unremarkable Clear for d/c home w/ return indications and followup, pt is agreeable to plan Disposition - Disposition Referrals: Dc Sharpe MD [Staff Provider] - Disposition: HOME/ ROUTINE Disposition Time: 10:38 Condition: GOOD Additional Instructions: Follow up with neurology mary lou, if any new issues or WALLIS returns and is worse, r eturn to ED CHRISTY WINSTON, thank you for letting us take care of you today. Your provider was Bill Amor and you were treated for HEADACHE. The emergency medical care you received today was directed at your acute symptoms. If you were prescribed any medication, please fill it and take as directed. It may take several days for your symptoms to resolve. Return to the Emergency Department if your symptoms worsen, do not improve, or if you have any other problems. Please contact your doctor or call one of the physicians/clinics you have been referred to that are listed on the Patient Visit Information form that is included in your discharge packet. Bring any paperwork you were given at discharge with you along with any medications you are taking to your follow up visit. Our treatment cannot replace ongoing medical care by a primary care provider outside of the emergency department. Thank you for allowing the [facility] team to be part of your care today. If you had an X-Ray or CT scan: A Radiologist will review the ED reading if any change in treatment is needed we will contact you. If you had a blood, urine, or wound culture: It will take several days for the results, if any change in treatment is needed we will contact you. If you had an STI test: It will take 48 hours for the results. Please call after 1 week if you have not heard back. Forms: [employer] (Uzbek) - Clinical Impression Clinical Impression: Migraine headache
[2018-10-11 10:03] LABS: ALB/GLOB RATIO 1.6 (1.0-2.1); ALBUMIN 4.5 g/dL (3.5-5.0); ALT/SGPT 31 U/L (21-72); AST/SGOT 29 U/L (17-59); BLOOD UREA NITROGEN 16 mg/dL (9-20); CALCIUM 9.3 mg/dl (8.6-10.4); GFR NON-AFRICAN AMERICAN > 60
--- NOTE | 2018-10-11 10:25 | CT ---
Date of service: 10/11/2018 PROCEDURE: CT HEAD WITHOUT CONTRAST. HISTORY: WALLIS COMPARISON: Unenhanced head CT 09/15/2017. TECHNIQUE: Axial computed tomography images were obtained through the head/brain without intravenous contrast. Radiation dose: Total exam DLP = 1006.59 mGy-cm. This CT exam was performed using one or more of the following dose reduction techniques: Automated exposure control, adjustment of the mA and/or kV according to patient size, and/or use of iterative reconstruction technique. FINDINGS: HEMORRHAGE: No intracranial hemorrhage. BRAIN: Trace subcortical white matter changes are infrequently scattered at the bilateral frontal lobes, likely a function of limited chronic microangiopathy. Good corticomedullary differentiation is appreciated throughout the brain. Remaining white matter is unremarkable otherwise. There is no mass effect or suspicious extra-axial fluid collection identified. Midline brain anatomy appears unremarkable including the brainstem. VENTRICLES: Unremarkable. No hydrocephalus. CALVARIUM: Unremarkable. PARANASAL SINUSES: Unremarkable as visualized. No significant inflammatory changes. MASTOID AIR CELLS: Unremarkable as visualized. No inflammatory changes. OTHER FINDINGS: None. IMPRESSION: Limited age-appropriate age related neuro degenerative changes are identified with CT examination otherwise unremarkable as discussed above. No mass effect or intracranial hemorrhage appreciable. No cortical edema to suggest acute brain infarction. Follow-up MRI or CT available if clinically warranted.
[2018-10-11 10:49] VITALS: BP 140/95; PULSE 84; O2SAT 97
== END 2018-10-11 10:50 | disposition home or self-care (01) ==
LOC: C.ER 09:05
DX: G43.909 Migraine, unspecified, not intractable, without status migrainosus (principal)
CPT/HCPCS: 70450; 80053; 85025; 96361; 96374; 99284; J2765; J7030

== ENCOUNTER 2018-10-12 05:09 | Emergency (ER) | payer SELFPAY ==
[2018-10-12 05:09] VITALS: BMI 22.4
[2018-10-12 05:31] VITALS: RESP 16
--- NOTE | 2018-10-12 06:11 | C.PDOC ---
History Of Present Illness The patient presents to the ED for evaluation of worsening bilateral hand pain. Patient has a history of pinched nerves and is requesting pain medicaiton because he ran out. Patient denies recent trauma/injury to the site. Time Seen by Provider: 10/12/18 06:11 Chief Complaint (Nursing): Upper Extremity Problem/Injury History Per: Patient History/Exam Limitations: no limitations Onset/Duration Of Symptoms: Days Current Symptoms Are (Timing): Worse Quality: "Pain" Severity: Mild Pain Scale Rating Of: 3 Exacerbating Factor(s): Nothing Recent travel outside of the [place]: No Additional History Per: Patient Past Medical History Reviewed: Historical Data, Nursing Documentation, Vital Signs Vital Signs: Last Vital Signs Temp 98.9 F 10/12/18 05:19 Pulse 81 10/12/18 05:19 Resp 16 10/12/18 05:19 BP 141/78 10/12/18 05:19 Pulse Ox 97 10/12/18 05:19 - Medical History PMH: Anxiety, Back Problems, Depression, HTN, Hypothyroidism (thyroid nodule), Migraine, Seizures Surgical History: No Surg Hx Family History: States: No Known Family Hx - Social History Hx Tobacco Use: No Hx Alcohol Use: No Hx Substance Use: No - Immunization History Hx Tetanus Toxoid Vaccination: No Hx Influenza Vaccination: Yes Hx Pneumococcal Vaccination: No Review Of Systems Constitutional: Negative for: Fever, Chills Cardiovascular: Negative for: Chest Pain, Palpitations Respiratory: Negative for: Cough, Shortness of Breath Gastrointestinal: Negative for: Nausea, Vomiting, Abdominal Pain, Diarrhea Musculoskeletal: Positive for: Hand Pain (bilateral ) Skin: Negative for: Rash, Lesions, Jaundice, Bruising Neurological: Negative for: Weakness, Numbness Psych: Negative for: Anxiety Physical Exam - Physical Exam Appears: Non-toxic, No Acute Distress Skin: Warm, Dry Head: Normacephalic Eye(s): bilateral: Normal Inspection Oral Mucosa: Moist Neck: Supple Chest: Symmetrical, No Deformity Cardiovascular: Rhythm Regular, No Murmur Respiratory: No Rales, No Rhonchi, No Wheezing Extremity: Normal ROM, No Tenderness, Capillary Refill (less than 2 seconds ), No Swelling Pulses: Left Radial: Normal, Right Radial: Normal Neurological/Psych: Oriented x3, Other (good strength and sensation bilaterally ) Gait: Steady ED Course And Treatment O2 Sat by Pulse Oximetry: 97 (on RA ) Pulse Ox Interpretation: Normal Disposition Counseled Patient/Family Regarding: Studies Performed, Diagnosis, Need For Followup - Disposition Referrals: [facility] [Outside] Disposition: HOME/ ROUTINE Disposition Time: 06:11 Condition: FAIR Prescriptions: RX: traMADol [Ultram] 50 mg PO TID PRN #15 tab PRN Reason: Pain, Severe (8-10) Instructions: Chronic Pain Forms: [employer] (Polish) - Clinical Impression Clinical Impression: Arm pain - Scribe Statement The provider has reviewed the documentation as recorded by the Scribe (Salome Staley) Provider Attestation: All medical record entries made by the Scribe were at my direction and personally dictated by me. I have reviewed the chart and agree that the record accurately reflects my personal performance of the history, physical exam, medical decision making, and the department course for this patient. I have also personally directed, reviewed, and agree with the discharge instructions and disposition.
[2018-10-12 06:28] VITALS: BP 128/78; PULSE 80; TEMP 98.4
[2018-10-12 06:31] VITALS: O2SAT 97
== END 2018-10-12 06:28 | disposition home or self-care (01) ==
LOC: C.ER 05:09
DX: M79.642 Pain in left hand (principal); M79.641 Pain in right hand

== ENCOUNTER 2018-10-17 05:10 | Emergency (ER) | payer OTHER ==
[2018-10-17 05:10] VITALS: BMI 22.4
[2018-10-17 05:17] VITALS: BP 139/87; PULSE 74; RESP 20; TEMP 97.8; O2SAT 97
--- NOTE | 2018-10-17 05:36 | C.PDOC ---
Time Seen by Provider: 10/17/18 05:36 Chief Complaint (Nursing): Abdominal Pain Past Medical History Vital Signs: Last Vital Signs Temp 97.8 F 10/17/18 05:13 Pulse 74 10/17/18 05:13 Resp 20 10/17/18 05:13 BP 139/87 10/17/18 05:13 Pulse Ox 97 10/17/18 05:13 - Medical History PMH: Anxiety, Back Problems, Depression, HTN, Hypothyroidism (thyroid nodule), Migraine, Seizures Family History: States: Unknown Family Hx - Social History Hx Tobacco Use: No Hx Alcohol Use: No Hx Substance Use: No - Immunization History Hx Tetanus Toxoid Vaccination: No Hx Influenza Vaccination: No Hx Pneumococcal Vaccination: No ED Course And Treatment O2 Sat by Pulse Oximetry: 97 Disposition Counseled Patient/Family Regarding: Studies Performed, Diagnosis - Disposition Disposition Time: 05:36
== END 2018-10-17 06:00 | disposition left against medical advice (07) ==
LOC: C.ER 05:10
DX: Z02.89 Encounter for other administrative examinations (principal); R10.9 Unspecified abdominal pain

== ENCOUNTER 2018-10-22 13:02 | Emergency (ER) | payer OTHER ==
[2018-10-22 13:07] VITALS: BMI 23.3
[2018-10-22 13:10] VITALS: RESP 18; O2SAT 98
--- NOTE | 2018-10-22 13:44 | C.PDOC ---
History Of Present Illness 57 y/o male, with history of anxiety and bipolar disorder, comes in complaining of pain and a mass in his left breast for 3 months that is now tender, with a few days worth of tenderness to newly found right breast mass. States that his father has history of breast cancer. Patient currently goes to [facility] and has been taking his medications. He denies any current auditory hallucinations, homicidal or suicidal ideation. no nipple discharge. Time Seen by Provider: 10/22/18 13:14 Chief Complaint (Nursing): Abnormal Skin Integrity History Per: Patient History/Exam Limitations: no limitations Onset/Duration Of Symptoms: Days Current Symptoms Are (Timing): Still Present Past Medical History Reviewed: Historical Data, Nursing Documentation, Vital Signs Vital Signs: Last Vital Signs Temp 98.5 F 10/22/18 13:07 Pulse 85 10/22/18 13:07 Resp 18 10/22/18 13:07 BP 122/75 10/22/18 13:07 Pulse Ox 98 10/22/18 13:07 - Medical History PMH: Anxiety, Back Problems, Depression, HTN, Hypothyroidism (thyroid nodule), Migraine, Seizures Family History: States: No Known Family Hx - Social History Hx Tobacco Use: No Hx Alcohol Use: No Hx Substance Use: No - Immunization History Hx Tetanus Toxoid Vaccination: No Hx Influenza Vaccination: No Hx Pneumococcal Vaccination: No Review Of Systems Constitutional: Negative for: Fever, Chills Cardiovascular: Negative for: Chest Pain Respiratory: Negative for: Cough, Shortness of Breath Gastrointestinal: Negative for: Nausea, Vomiting Genitourinary: Negative for: Dysuria Musculoskeletal: Positive for: Other (bilateral breast pain and mass) Skin: Negative for: Rash Psych: Negative for: Suicidal ideation (or homicidal ideation), Other (auditory hallucination) Physical Exam - Physical Exam Appears: Non-toxic, No Acute Distress Skin: Warm, Dry Head: Atraumatic, Normacephalic Eye(s): bilateral: Normal Inspection Oral Mucosa: Moist Neck: Supple Lymphatic: Other (No axillary adenopathy) Chest: Tenderness (0.5 cm mass palpated at 7 o clock position of left breast), Other (has 1cm mobile tender mass at 8-9 o clock position on right breast) Cardiovascular: Rhythm Regular, No Murmur Respiratory: Normal Breath Sounds, No Rales, No Rhonchi, No Wheezing Gastrointestinal/Abdominal: Soft, No Tenderness Extremity: Bilateral: Normal Color And Temperature, Normal ROM Neurological/Psych: Oriented x3, Normal Speech ED Course And Treatment O2 Sat by Pulse Oximetry: 98 (RA) Pulse Ox Interpretation: Normal Medical Decision Making Medical Decision Making: Plan: --Ibuprofen PO Had long discussion with patient about beed for outpatient testing for mbreast masses' Patient has an appointment on 09/26/18 at medical clinic and was advised to discuss case with the medical provider and get rx for mammo and/or breast us. pt understands. . Disposition Counseled Patient/Family Regarding: Diagnosis, Need For Followup - Disposition Referrals: [facility] [Outside] [facility] [Outside] Disposition: HOME/ ROUTINE Disposition Time: 13:41 Condition: GOOD Additional Instructions: Go to your already scheduled medical appointment on 10/27; make sure to tell your medical provider that you have breast pain and lumps, and is recommended that you have further outpatient studies such as mammogram and/or breast ultrasound. Take Tylenol or Motrin for pain. Follow up with Manan Verduzco. Continue going to [facility] for outpatient treatment. YOU ARE RECEIVING INFORMATION ABOUT MALE BREAST CANCER, HOWEVER.,THIS DOES NOT MEAN YOU HAVE BREAST CANCER, BUT YOU NEED TO HAVE BREAST LUMPS FURTHER CHECKED OUT. Instructions: Male Breast Cancer Forms: [facility] (Syrian), General Discharge Instructions - Clinical Impression Clinical Impression: Masses of both breasts - PA / CATHOLIC PRIEST / Resident Statement MD/DO has reviewed & agrees with the documentation as recorded. - Scribe Statement The provider has reviewed the documentation as recorded by the Scribe Nury Otero All medical record entries made by the Ismaelibkorey were at my direction and personally dictated by me. I have reviewed the chart and agree that the record accurately reflects my personal performance of the history, physical exam, medical decision making, and the department course for this patient. I have also personally directed, reviewed, and agree with the discharge instructions and disposition.
[2018-10-22 13:57] VITALS: BP 124/77; PULSE 80; TEMP 98
== END 2018-10-22 14:07 | disposition home or self-care (01) ==
LOC: C.ER 13:02
DX: N63.0 Unspecified lump in unspecified breast (principal)

== ENCOUNTER 2018-10-24 06:41 | Emergency (ER) | payer OTHER ==
[2018-10-24 06:41] VITALS: BMI 23.3
[2018-10-24 06:51] VITALS: PULSE 69; RESP 20; O2SAT 98
--- NOTE | 2018-10-24 07:32 | C.PDOC ---
History Of Present Illness 57 y/o male pt with FMHx of breast cancer presents to the ER c/o pain on b/l nipples. Associated sx includes nodes on b/l nipples and fatigue. Pt was seen here x2 days ago for similar sx and was given motrin which pt reports does not provide pain relief. Pt request breast US, but was informed that he would need a breast specialist to preform the US. Pt does not have any other complaints at this time. Time Seen by Provider: 10/24/18 07:12 Chief Complaint (Nursing): Medical Clearance History Per: Patient History/Exam Limitations: no limitations Onset/Duration Of Symptoms: Days Current Symptoms Are (Timing): Still Present Past Medical History Reviewed: Historical Data, Nursing Documentation, Vital Signs Vital Signs: Last Vital Signs Temp 98.3 F 10/24/18 06:48 Pulse 69 10/24/18 06:48 Resp 20 10/24/18 06:48 BP 133/81 10/24/18 06:48 Pulse Ox 98 10/24/18 06:48 - Medical History PMH: Anxiety, Back Problems, Depression, HTN, Hypothyroidism (thyroid nodule), Migraine, Seizures Family History: States: Unknown Family Hx - Social History Hx Tobacco Use: No Hx Alcohol Use: No Hx Substance Use: No - Immunization History Hx Tetanus Toxoid Vaccination: No Hx Influenza Vaccination: No Hx Pneumococcal Vaccination: No Review Of Systems Except As Marked, All Systems Reviewed And Found Negative. Constitutional: Positive for: Other (fatigue ). Negative for: Fever, Chills Musculoskeletal: Positive for: Other (pain b/l nipples ) Skin: Positive for: Other (lymph nodes on b/l nipples) Physical Exam - Physical Exam Appears: Non-toxic, No Acute Distress Skin: Warm, Dry Head: Normacephalic Eye(s): bilateral: Normal Inspection Throat: Normal Neck: Normal ROM, Supple Lymphatic: Other (Small movable 1 cm mass at 6 o'clock position on left breast and 8 o'clock position on right breast ) Chest: Symmetrical, No Deformity, Tenderness (b/l breast ), No Ecchymosis Cardiovascular: Rhythm Regular Respiratory: Normal Breath Sounds Extremity: Normal ROM (x4) Neurological/Psych: Oriented x3, Normal Speech, Normal Sensation ED Course And Treatment - Laboratory Results Result Diagrams: 10/24/18 07:50 10/24/18 07:50 O2 Sat by Pulse Oximetry: 98 (RA) Pulse Ox Interpretation: Normal - Other Rad chest X-Ray: Read By Radiologist Interpretation: Accession No. : [id number]. Patient Name / ID : GLADIS CHAVEZ / [id number]. Exam Date : 10/24/2018 08:01:08 ( Approved ). Study Comment : Sex / Age : M / 57Y. Creator : vikki booth. Dictator : Lesly Rodríguez MD. Lineworker : Mud Cleaner Operator : Lesly Rodríguez MD. Approver2 : Report Date : 10/24/2018 08:08:07. My Comment : . HISTORY: painful b/l breast masses. COMPARISON: None available. TECHNIQUE: Chest PA and lateral. FINDINGS: LUNGS: Chronic appearing interstitial prominence. Biapical pleural thickening. No focal consolidation. Please note that chest x-ray has limited sensitivity for the detection of pulmonary masses. PLEURA: No significant pleural effusion identified. No definite pneumothorax . CARDIOVASCULAR: Heart size appears within normal limits. Ectatic aorta. Atherosclerotic calcifications of the aortic knob. OSSEOUS STRUCTURES: Mild degenerative changes. Osseous demineralization. VISUALIZED UPPER ABDOMEN: Unremarkable. OTHER FINDINGS: Left breast shadow consistent with gynecomastia. IMPRESSION: Chronic appearing interstitial prominence. Biapical pleural thickening. Left breast shadow consistent with gynecomastia. Progress Note: Plans: -- Chem labs. -- blood work. -- CXR. Pt complains that Motrin was not strong enough to provide pain relief. On re-evaluation patient feels better, labs and CXR were reviwed and without significant abnormalities. Patient will f/u in Clinic ob 10/27/18 as previously scheduled. Patient agrred with this plan. Toradol will be given to pt. Disposition - Disposition Disposition: HOME/ ROUTINE Disposition Time: 09:26 Condition: STABLE Additional Instructions: Follow up in Clinic om 10/27/18 as previously scheduled. Return to ED if feel worse. Prescriptions: traMADol [Ultram] 50 mg PO Q6 #20 tab Instructions: Mastalgia (DC) Forms: [facility] (Citizen [place]) - Clinical Impression Clinical Impression: Breast pain in male - PA / MAJOR GIFTS MANAGER / Resident Statement MD/DO has reviewed & agrees with the documentation as recorded. - Scribe Statement The provider has reviewed the documentation as recorded by the Scribe Jeannie Watson All medical record entries made by the Scribe were at my direction and personally dictated by me. I have reviewed the chart and agree that the record accurately reflects my personal performance of the history, physical exam, medical decision making, and the department course for this patient. I have also personally directed, reviewed, and agree with the discharge instructions and disposition.
[2018-10-24 08:00] LABS: EOS # 0.1 K/uL (0.0-0.7); HEMOGLOBIN 13.2 g/dL (12.0-18.0); LYMPH # 1.2 K/uL (1.0-4.3); LYMPH % 30.6 % (20.0-40.0); MEAN CELL VOLUME 93.3 fL (80.0-94.0); MEAN CORPUSCULAR HEMOGLOBIN 31.8 pg (27.0-31.0); MEAN CORPUSCULAR HGB CONC 34.1 g/dL (33.0-37.0); MEAN PLATELET VOLUME 8.8 fL (7.2-11.7); MONO # 0.4 K/uL (0.0-0.8); MONO % 10.2 % (0.0-10.0); NEUT # 2.1 K/uL (1.8-7.0); NEUT % 55.2 % (50.0-75.0); NRBC % 0.1 % (0.0-2.0); RBC 4.16 Mil/uL (4.40-5.90); RED CELL DISTRIBUTION WIDTH 13.6 % (11.5-14.5); WHITE BLOOD COUNT 3.9 K/uL (4.8-10.8)
[2018-10-24 08:13] LABS: URINE BILIRUBIN NEGATIVE (NEGATIVE); URINE BLOOD NEGATIVE (NEGATIVE); URINE CLARITY Clear (Clear); URINE COLOR Yellow (YELLOW); URINE GLUCOSE (UA) NORMAL (Normal); URINE LEUKOCYTE ESTERASE NEG Leu/uL (Negative); URINE PROTEIN NEGATIVE (NEGATIVE); URINE UROBILINOGEN NORMAL mg/dL (0.2-1.0)
[2018-10-24 08:33] LABS: ALB/GLOB RATIO 1.7 (1.0-2.1); ALBUMIN 4.1 g/dL (3.5-5.0); ALT/SGPT 21 U/L (21-72); AST/SGOT 24 U/L (17-59); BLOOD UREA NITROGEN 16 mg/dL (9-20); CALCIUM 8.8 mg/dl (8.6-10.4); GFR NON-AFRICAN AMERICAN > 60
[2018-10-24 09:42] VITALS: BP 145/84; TEMP 97.6
--- NOTE | 2018-10-24 10:50 | RAD ---
HISTORY: painful b/l breast masses COMPARISON: None available TECHNIQUE: Chest PA and lateral FINDINGS: LUNGS: Chronic appearing interstitial prominence. Biapical pleural thickening. No focal consolidation. Please note that chest x-ray has limited sensitivity for the detection of pulmonary masses. PLEURA: No significant pleural effusion identified. No definite pneumothorax . CARDIOVASCULAR: Heart size appears within normal limits. Ectatic aorta. Atherosclerotic calcifications of the aortic knob. OSSEOUS STRUCTURES: Mild degenerative changes. Osseous demineralization. VISUALIZED UPPER ABDOMEN: Unremarkable. OTHER FINDINGS: Left breast shadow consistent with gynecomastia. IMPRESSION: Chronic appearing interstitial prominence. Biapical pleural thickening. Left breast shadow consistent with gynecomastia.
== END 2018-10-24 09:41 | disposition home or self-care (01) ==
LOC: C.ER 06:41
DX: N64.4 Mastodynia (principal); I10 Essential (primary) hypertension; E03.9 Hypothyroidism, unspecified
CPT/HCPCS: 71046; 80053; 81001; 85025; 96374; 99284; J1885

== ENCOUNTER 2018-12-20 05:21 | Emergency (ER) | payer OTHER ==
[2018-12-20 05:22] VITALS: BMI 23.3
[2018-12-20 05:31] VITALS: O2SAT 98
--- NOTE | 2018-12-20 05:59 | C.PDOC ---
History Of Present Illness 58 year old male with PMHx of chronic migraines presents to the ED requesting refill for his medications. Patient has multiple prior visits to the ED for same presentation. Patient reports he is unable to get an appointment with the clinic, also requesting refill for his other medications including psych. Patient currently c/o mild headache. Contrary to triage patient denies dizziness and nausea. Patient denies fever, chills, vomit, diarrhea, rash, CP, SOB, SI/HI, hallucinations. Time Seen by Provider: 12/20/18 05:41 Chief Complaint (Nursing): Med Refill History Per: Patient History/Exam Limitations: no limitations Onset/Duration Of Symptoms: Hrs Recent travel outside of the [place]: No Additional History Per: Patient Past Medical History Reviewed: Historical Data, Nursing Documentation, Vital Signs Vital Signs: Last Vital Signs Temp 978 F H 12/20/18 05:29 Pulse 68 12/20/18 05:29 Resp 22 12/20/18 05:29 BP 156/95 H 12/20/18 05:29 Pulse Ox 98 12/20/18 05:29 - Medical History PMH: Anxiety, Back Problems, Depression, HTN, Hypothyroidism (thyroid nodule), Migraine, Seizures Surgical History: No Surg Hx Family History: States: Unknown Family Hx - Social History Hx Tobacco Use: No Hx Alcohol Use: No Hx Substance Use: No - Immunization History Hx Tetanus Toxoid Vaccination: No Hx Influenza Vaccination: No Hx Pneumococcal Vaccination: No Review Of Systems Constitutional: Negative for: Fever, Chills Eyes: Negative for: Vision Change Cardiovascular: Negative for: Chest Pain Respiratory: Negative for: Shortness of Breath Gastrointestinal: Negative for: Nausea, Vomiting, Abdominal Pain Skin: Negative for: Rash Neurological: Positive for: Headache. Negative for: Weakness, Numbness, Dizziness Physical Exam - Physical Exam Appears: Non-toxic, No Acute Distress Skin: Normal Color, Warm, Dry Head: Atraumatic, Normacephalic Eye(s): bilateral: Normal Inspection, PERRL, EOMI Oral Mucosa: Moist Neck: Normal ROM, Supple Chest: Symmetrical Cardiovascular: Rhythm Regular Respiratory: Normal Breath Sounds, No Rales, No Rhonchi, No Wheezing Gastrointestinal/Abdominal: Soft, No Tenderness Extremity: Normal ROM, No Tenderness, No Swelling Neurological/Psych: Oriented x3, Normal Speech, Normal Cognition, Other (non focal) Gait: Steady ED Course And Treatment O2 Sat by Pulse Oximetry: 98 (ON RA) Pulse Ox Interpretation: Normal Progress Note: Patient given prescription for Fioricet to fill, advised to follow up with clinic to get refill for his other medications. Disposition Counseled Patient/Family Regarding: Diagnosis, Need For Followup - Disposition Referrals: [facility] [Outside] Disposition: HOME/ ROUTINE Disposition Time: 05:56 Condition: STABLE Additional Instructions: Please follow up in clinic KEEP ALL APPOINTMENTS IN FUTURE Return to ER if worse Prescriptions: Acetaminophen/Butalbital/Caf [Fioricet] 1 tab PO TID PRN #20 tab PRN Reason: Headache Instructions: Migraine Headache (DC) Forms: [facility] (Mongolian) - Clinical Impression Clinical Impression: Migraine headache - PA / SUPERVISOR CHASSIS ASSEMBLY / Resident Statement MD/DO has reviewed & agrees with the documentation as recorded. - Scribe Statement The provider has reviewed the documentation as recorded by the Scribe Gilles Eckert All medical record entries made by the Scribe were at my direction and personally dictated by me. I have reviewed the chart and agree that the record accurately reflects my personal performance of the history, physical exam, medical decision making, and the department course for this patient. I have also personally directed, reviewed, and agree with the discharge instructions and disposition.
[2018-12-20 06:36] VITALS: BP 143/80; PULSE 81; RESP 20; TEMP 98
== END 2018-12-20 06:34 | disposition home or self-care (01) ==
LOC: C.ER 05:21
DX: G43.909 Migraine, unspecified, not intractable, without status migrainosus (principal); I10 Essential (primary) hypertension; E03.9 Hypothyroidism, unspecified

== ENCOUNTER 2018-12-22 13:38 | Emergency (ER) | payer OTHER ==
[2018-12-22 13:38] VITALS: BMI 23.3
[2018-12-22 13:47] VITALS: RESP 18
--- NOTE | 2018-12-22 14:41 | C.PDOC ---
Time Seen by Provider: 12/22/18 14:39 Chief Complaint (Nursing): Shortness Of Breath Past Medical History Vital Signs: Last Vital Signs Temp 97.9 F 12/22/18 13:44 Pulse 77 12/22/18 13:44 Resp 18 12/22/18 13:44 BP 147/84 12/22/18 13:44 Pulse Ox 99 12/22/18 13:44 - Medical History PMH: Anxiety, Back Problems, Depression, HTN, Hypothyroidism (thyroid nodule), Migraine, Seizures Family History: States: Unknown Family Hx - Social History Hx Tobacco Use: No Hx Alcohol Use: No Hx Substance Use: No - Immunization History Hx Tetanus Toxoid Vaccination: No Hx Influenza Vaccination: No Hx Pneumococcal Vaccination: No ED Course And Treatment O2 Sat by Pulse Oximetry: 99 Disposition - Disposition Forms: [email or web address] (Georgian)
--- NOTE | 2018-12-22 15:13 | C.PDOC ---
History Of Present Illness 58 year old male, whose PMHx includes HTN, presents to the ED for evaluation of nasal congestion associated with difficulty breathing which began this morning. Patient has not taken anything for his symptoms. Contrary to triage, patient denies shortness of breath. He also denies fever, chills, facial pressure. Time Seen by Provider: 12/22/18 14:39 Chief Complaint (Nursing): Shortness Of Breath History Per: Patient History/Exam Limitations: no limitations Onset/Duration Of Symptoms: Hrs Current Symptoms Are (Timing): Still Present Associated Symptoms: Nasal Congestion. denies: Fever, Chills Additional History Per: Patient Past Medical History Reviewed: Historical Data, Nursing Documentation, Vital Signs Vital Signs: Last Vital Signs Temp 97.9 F 12/22/18 13:44 Pulse 77 12/22/18 13:44 Resp 18 12/22/18 14:53 BP 147/84 12/22/18 13:44 Pulse Ox 99 12/22/18 13:44 - Medical History PMH: Anxiety, Back Problems, Depression, HTN, Hypothyroidism (thyroid nodule), Migraine, Seizures Surgical History: No Surg Hx Family History: States: Unknown Family Hx - Social History Hx Tobacco Use: No Hx Alcohol Use: No Hx Substance Use: No - Immunization History Hx Tetanus Toxoid Vaccination: No Hx Influenza Vaccination: No Hx Pneumococcal Vaccination: No Review Of Systems Constitutional: Negative for: Fever, Chills ENT: Positive for: Nose Congestion Respiratory: Negative for: Shortness of Breath Physical Exam - Physical Exam Appears: Non-toxic, No Acute Distress Skin: Normal Color, Warm, Dry Head: Atraumatic, Normacephalic, Other (sinus congestion noted ) Eye(s): bilateral: Normal Inspection Nose: Other (mild nasal sinus tenderness ) Oral Mucosa: Moist Neck: Supple Chest: Symmetrical, No Deformity, No Tenderness Cardiovascular: Rhythm Regular, No Murmur Respiratory: Normal Breath Sounds, No Rales, No Rhonchi, No Wheezing, Other (speaking in full sentences ) Extremity: Normal ROM Neurological/Psych: Oriented x3, Normal Speech, Normal Cognition ED Course And Treatment O2 Sat by Pulse Oximetry: 99 (on RA) Pulse Ox Interpretation: Normal Disposition Counseled Patient/Family Regarding: Diagnosis, Need For Followup, Rx Given - Disposition Referrals: YOUR,PMD [Other] Disposition: HOME/ ROUTINE Disposition Time: 15:06 Condition: GOOD Prescriptions: Oxymetazoline 0.05% [Afrin 0.05%] 30 spr NS STAT #1 bottle Phenylephrine HCl [Sudafed PE] 10 mg PO Q4 #12 Instructions: Sinusitis, Adult (DC) Forms: [facility] (Kosovan) - Clinical Impression Clinical Impression: Sinusitis - Scribe Statement The provider has reviewed the documentation as recorded by the Scribe (Salome Staley) Provider Attestation: All medical record entries made by the Scribe were at my direction and personally dictated by me. I have reviewed the chart and agree that the record accurately reflects my personal performance of the history, physical exam, medical decision making, and the department course for this patient. I have also personally directed, reviewed, and agree with the discharge instructions and disposition.
[2018-12-22 15:25] VITALS: BP 132/82; PULSE 82; TEMP 98.1
[2018-12-22 15:52] VITALS: O2SAT 99
--- NOTE | 2018-12-25 14:55 | CARD ---
APPROVED REPORT Date of service: 12/22/2018 EKG Measurement Heart [id number] <Conclusion> Normal sinus rhythm Prolonged QT Abnormal ECG
== END 2018-12-22 15:25 | disposition home or self-care (01) ==
LOC: C.ER 13:38
DX: J32.9 Chronic sinusitis, unspecified (principal); I10 Essential (primary) hypertension; Z87.891 Personal history of nicotine dependence

== ENCOUNTER 2018-12-23 09:25 | Emergency (ER) | payer OTHER ==
[2018-12-23 09:25] VITALS: BMI 23.3
[2018-12-23 09:35] VITALS: BP 145/92; PULSE 86; RESP 18; TEMP 98.1; O2SAT 98
[2018-12-23 10:33] LABS: INFLUENZA A B NEGATIVE FOR FLU A/B (NEGATIVE)
--- NOTE | 2018-12-23 10:39 | C.PDOC ---
History Of Present Illness 58 year old male patient presents to the ER c/o experiencing nasal congestion for x2 days. Associated symptoms includes sore throat, fever, body ache and cough. Patient was seen here yesterday and diagnosed with sinusitis. He was given prescription and used it with no relief. Patient denies chills, nausea and vomiting Time Seen by Provider: 12/23/18 09:30 Chief Complaint (Nursing): ENT Problem History Per: Patient History/Exam Limitations: no limitations Onset/Duration Of Symptoms: Days (x2) Current Symptoms Are (Timing): Still Present Past Medical History Reviewed: Historical Data, Nursing Documentation, Vital Signs Vital Signs: Last Vital Signs Temp 98.1 F 12/23/18 09:34 Pulse 86 12/23/18 09:34 Resp 18 12/23/18 09:34 BP 145/92 H 12/23/18 09:34 Pulse Ox 98 12/23/18 09:34 - Medical History PMH: Anxiety, Back Problems, Depression, HTN, Hypothyroidism (thyroid nodule), Migraine, Seizures Family History: States: Unknown Family Hx - Social History Hx Tobacco Use: No Hx Alcohol Use: No Hx Substance Use: No - Immunization History Hx Tetanus Toxoid Vaccination: No Hx Influenza Vaccination: No Hx Pneumococcal Vaccination: No Review Of Systems Except As Marked, All Systems Reviewed And Found Negative. Constitutional: Positive for: Fever. Negative for: Chills ENT: Positive for: Nose Congestion, Throat Pain Respiratory: Positive for: Cough Gastrointestinal: Negative for: Nausea, Vomiting Musculoskeletal: Positive for: Other (body ache ) Physical Exam - Physical Exam Appears: Non-toxic, No Acute Distress Skin: Warm, Dry, No Rash Head: Normacephalic Eye(s): bilateral: Normal Inspection Ear(s): Bilateral: Normal Nose: Other (congestion ) Oral Mucosa: Moist Throat: Normal, No Erythema, No Exudate Neck: Normal ROM, Supple Cardiovascular: Rhythm Regular Respiratory: Normal Breath Sounds Neurological/Psych: Oriented x3, Normal Speech ED Course And Treatment O2 Sat by Pulse Oximetry: 98 (RA) Pulse Ox Interpretation: Normal Medical Decision Making Medical Decision Making: plans: -- throat cx -- influenza A B -- Rapid strep Disposition - Disposition Referrals: [facility] [Outside] Disposition: HOME/ ROUTINE Disposition Time: 10:50 Condition: GOOD Additional Instructions: Follow up with the medical doctor within 1-2 days. Return if worsened. Prescriptions: Amoxicillin/Clavulanate [Augmentin 875 MG-125 MG] 1 tab PO BID #14 tab Loratadine [Claritin] 10 mg PO DAILY #10 tab predniSONE [Prednisone] 20 mg PO BID #10 tab Instructions: Sinusitis, Adult (DC) Forms: [employer] (Anguillan) Print Language: ENGLISH - Clinical Impression Clinical Impression: Sinusitis - PA / ENGINE SERVICE REPAIRER / Resident Statement / has reviewed & agrees with the documentation as recorded. - Scribe Statement The provider has reviewed the documentation as recorded by the Myla Dennis Do All medical record entries made by the Myla were at my direction and personally dictated by me. I have reviewed the chart and agree that the record accurately reflects my personal performance of the history, physical exam, medical decision making, and the department course for this patient. I have also personally directed, reviewed, and agree with the discharge instructions and disposition.
== END 2018-12-23 10:56 | disposition home or self-care (01) ==
LOC: C.ER 09:25
DX: J32.9 Chronic sinusitis, unspecified (principal)

== ENCOUNTER 2018-12-26 05:59 | Emergency (ER) | payer OTHER ==
[2018-12-26 06:00] VITALS: BMI 23.3
[2018-12-26 06:12] VITALS: PULSE 75; TEMP 97.5
[2018-12-26] MEDS ORDERED: Pantoprazole 80 MG in Sodium Chloride 0.9% 100 ML IV STA (06:31)
[2018-12-26] MEDS ORDERED: Sodium Chloride 0.9% 1,000 ML IV ONE (06:31)
--- NOTE | 2018-12-26 06:31 | C.PDOC ---
History Of Present Illness patient states that he had some blood in his stool this am. Also states that his nipples have been hurting for months. No obvious trauma, No discharge. No f/c/n/v. Tolerating po Time Seen by Provider: 12/26/18 06:31 Chief Complaint (Nursing): Abdominal Pain History Per: Patient History/Exam Limitations: no limitations Onset/Duration Of Symptoms: Hrs Current Symptoms Are (Timing): Still Present Context: Other Severity: Mild Pain Scale Rating Of: 3 Location Of Pain/Discomfort: Diffuse Radiation Of Pain To:: None Quality Of Discomfort: Dull, Cramping Associated Symptoms: Other (rectal bleeding). denies: Fever, Chills, Nausea, Vomiting Exacerbating Factors: None Alleviating Factors: None Last Bowel Movement: Today Recent travel outside of the [place]: No Additional History Per: Patient Past Medical History Reviewed: Historical Data, Nursing Documentation, Vital Signs Vital Signs: Last Vital Signs Temp 97.5 F L 12/26/18 06:08 Pulse 75 12/26/18 06:08 Resp 16 12/26/18 06:08 BP 143/82 12/26/18 06:08 Pulse Ox 96 12/26/18 06:08 - Medical History PMH: Anxiety, Back Problems, Depression, HTN, Hypothyroidism (thyroid nodule), Migraine, Seizures Family History: States: No Known Family Hx - Social History Hx Tobacco Use: No Hx Alcohol Use: No Hx Substance Use: No - Immunization History Hx Tetanus Toxoid Vaccination: No Hx Influenza Vaccination: No Hx Pneumococcal Vaccination: No Review Of Systems Constitutional: Negative for: Fever, Chills ENT: Negative for: Throat Pain Cardiovascular: Negative for: Chest Pain Respiratory: Negative for: Shortness of Breath Gastrointestinal: Positive for: Hematochezia. Negative for: Nausea, Vomiting, Abdominal Pain, Rectal Pain Genitourinary: Negative for: Dysuria Musculoskeletal: Negative for: Back Pain Skin: Negative for: Rash Neurological: Negative for: Headache Psych: Negative for: Anxiety Physical Exam - Physical Exam Appears: Non-toxic, No Acute Distress Skin: Warm, Dry Head: Normacephalic Eye(s): bilateral: Normal Inspection Oral Mucosa: Moist Chest: Symmetrical, Other (? mild gynecomastia) Cardiovascular: Rhythm Regular Respiratory: No Rales, No Rhonchi, No Wheezing Gastrointestinal/Abdominal: Soft, No Tenderness, No Distention Rectal: Rectal Tone, Heme Negative, No Hemorrhoids, No Tenderness Back: No CVA Tenderness Extremity: Normal ROM Extremity: Bilateral: Atraumatic Neurological/Psych: Oriented x3 Gait: Steady ED Course And Treatment O2 Sat by Pulse Oximetry: 96 Pulse Ox Interpretation: Normal Disposition Counseled Patient/Family Regarding: Studies Performed, Diagnosis - Disposition Disposition Time: 06:31 Condition: FAIR Forms: [employer] (U[place]bek) - Clinical Impression Clinical Impression: Abdominal pain Physician Patient Turnover Patient Signed Over To: Naima Dill Handoff Comments: pending labs, re-eval and dispo
[2018-12-26 07:04] LABS: EOS # 0.2 K/uL (0.0-0.7); EOS % 3.9 % (0.0-4.0); HEMOGLOBIN 13.5 g/dL (12.0-18.0); LYMPH # 1.3 K/uL (1.0-4.3); LYMPH % 28.7 % (20.0-40.0); MEAN CELL VOLUME 91.8 fL (80.0-94.0); MEAN CORPUSCULAR HEMOGLOBIN 31.7 pg (27.0-31.0); MEAN CORPUSCULAR HGB CONC 34.6 g/dL (33.0-37.0); MONO # 0.5 K/uL (0.0-0.8); MONO % 11.4 % (0.0-10.0); NEUT # 2.5 K/uL (1.8-7.0); NRBC % 0.1 % (0.0-2.0); RBC 4.25 Mil/uL (4.40-5.90); RED CELL DISTRIBUTION WIDTH 12.9 % (11.5-14.5); WHITE BLOOD COUNT 4.6 K/uL (4.8-10.8)
[2018-12-26 07:14] LABS: PROTHROMBIN TIME 11.3 SECONDS (9.7-12.2)
[2018-12-26 07:20] LABS: ALB/GLOB RATIO 1.5 (1.0-2.1); ALBUMIN 4.1 g/dL (3.5-5.0); ALT/SGPT 14 U/L (21-72); AST/SGOT 19 U/L (17-59); BLOOD UREA NITROGEN 18 mg/dL (9-20); CALCIUM 9.6 mg/dl (8.6-10.4); GFR NON-AFRICAN AMERICAN > 60
[2018-12-26 07:41] VITALS: BP 157/89; RESP 20; O2SAT 97
== END 2018-12-26 07:52 | disposition home or self-care (01) ==
LOC: C.ER 05:59
DX: R10.9 Unspecified abdominal pain (principal); G89.29 Other chronic pain; N64.59 Other signs and symptoms in breast; I10 Essential (primary) hypertension; Z87.891 Personal history of nicotine dependence
CPT/HCPCS: 80053; 85025; 85610; 85730; 86850; 86900; 99284; C9113; G0328; J7030

== ENCOUNTER 2019-01-08 12:11 | Outpatient (CLI) | payer OTHER | END 2019-01-08 12:12 | disposition home or self-care (01) | LOC: C.MAMMO 12:11 | DX: N62 Hypertrophy of breast (principal) ==

== ENCOUNTER 2019-01-19 06:11 | Emergency (ER) | payer OTHER ==
[2019-01-19 06:12] VITALS: BMI 23.3
[2019-01-19 06:22] VITALS: BP 136/90; PULSE 70; RESP 14; TEMP 98.3; O2SAT 97
--- NOTE | 2019-01-19 07:35 | C.PDOC ---
History Of Present Illness 58 year old male presents to the ED complaining of abdominal pain, described as gas-like discomfort, for the past 2 hours. Patient believes symptoms are from eating a chicken dinner last night. He did not take any pain medication prior to arrival. Currently patient denies having any pain. He reports pain improved spontaneously within 30 minutes of arriving to the ED. Otherwise he denies any nausea, vomiting, diarrhea, dysuria, hematuria, or fever. Time Seen by Provider: 01/19/19 07:08 Chief Complaint (Nursing): Abdominal Pain History Per: Patient History/Exam Limitations: no limitations Onset/Duration Of Symptoms: Hrs (x 2) Current Symptoms Are (Timing): Gone Location Of Pain/Discomfort: Epigastric Quality Of Discomfort: Gas Associated Symptoms: denies: Fever, Vomiting, Diarrhea Past Medical History Reviewed: Historical Data, Nursing Documentation, Vital Signs Vital Signs: Last Vital Signs Temp 98.3 F 01/19/19 06:19 Pulse 70 01/19/19 06:19 Resp 14 01/19/19 06:19 BP 136/90 01/19/19 06:19 Pulse Ox 97 01/19/19 06:19 Primary Care Provider: Clinic,Med Surg - Medical History PMH: Anxiety, Back Problems, Depression, HTN, Hypothyroidism (thyroid nodule), Migraine, Seizures Family History: States: Unknown Family Hx - Social History Hx Tobacco Use: No Hx Alcohol Use: No Hx Substance Use: No - Immunization History Hx Tetanus Toxoid Vaccination: No Hx Influenza Vaccination: No Hx Pneumococcal Vaccination: No Review Of Systems Constitutional: Negative for: Fever, Chills Cardiovascular: Negative for: Chest Pain Respiratory: Negative for: Shortness of Breath Gastrointestinal: Positive for: Abdominal Pain. Negative for: Nausea, Vomiting, Diarrhea, Constipation Genitourinary: Negative for: Dysuria, Hematuria Musculoskeletal: Negative for: Back Pain Neurological: Negative for: Weakness, Numbness Physical Exam - Physical Exam Appears: Well, Non-toxic, No Acute Distress Skin: Warm, Dry, No Rash Head: Atraumatic, Normacephalic Eye(s): bilateral: Normal Inspection Neck: Normal ROM Chest: Symmetrical Cardiovascular: Rhythm Regular, No Murmur Respiratory: Normal Breath Sounds, No Rales, No Rhonchi, No Wheezing Gastrointestinal/Abdominal: Bowel Sounds (normal), Soft, No Tenderness, No Distention Back: No CVA Tenderness Extremity: Bilateral: Atraumatic, Normal Color And Temperature, Normal ROM Neurological/Psych: Oriented x3, Normal Speech Gait: Steady ED Course And Treatment O2 Sat by Pulse Oximetry: 97 (on room air) Pulse Ox Interpretation: Normal Medical Decision Making Medical Decision Making: Patient reports complete resolution of symptoms and wants to go home. On exam, abdomen is soft and non-tender. Patient remained afebrile alert and oriented with stable vital signs during ER evaluation. 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 - Scribe Statement The provider has reviewed the documentation as recorded by the Ismaelibkorey Rosales All medical record entries made by the Ismaelibe were at my direction and personally dictated by me. I have reviewed the chart and agree that the record accurately reflects my personal performance of the history, physical exam, medical decision making, and the department course for this patient. I have also personally directed, reviewed, and agree with the discharge instructions and disposition.
== END 2019-01-19 07:43 | disposition home or self-care (01) ==
LOC: C.ER 06:11
DX: R10.13 Epigastric pain (principal)